=== PATIENT | female | born 1940 | race Caucasian/White ===

== ENCOUNTER 2019-11-10 14:54 | Outpatient (CLI) | payer MEDICARE, SELFPAY ==
--- NOTE | 2019-11-10 15:03 | MM_ITS ---
WS: [id number] BILATERAL DIGITAL DIAGNOSTIC MAMMOGRAM MAMMOGRAPHY WITH CAD CLINICAL INFORMATION: HX OF BREAST CA COMPARISON: September 15, 2018 TECHNIQUE: Bilateral CC, MLO, and ML views. FINDINGS: The breasts are composed of heterogeneous fibroglandular density, which can limit the detection of sm all underlying mass lesions. Lucent centered and vascular calcifications. Postoperative changes right breast with lumpectomy and parenchymal scarring. Treatment-related changes right breast. Postoperati ve changes upper outer left breast with parenchymal scarring. This is unchanged in appearance. No suspicious focal mass, asymmetry, calcifications, or architectural distortion. No evidence of jace gnancy. MM/[place] [id number] IMPRESSION: BI-RADS: 2-Benign FOLLOW UP: 1 Year Follow-up Recommend return to annual diagnostic mammography.
== END 2019-11-10 14:55 | disposition home or self-care (01) ==
LOC: RADSHAW 15:00
PROVIDERS: PCP Nurse Practitioner Family; Visit Provider Nurse Practitioner Family
DX: Z12.31 Encounter for screening mammogram for malignant neoplasm of breast (principal); Z85.3 Personal history of malignant neoplasm of breast
CPT/HCPCS: 77066

== ENCOUNTER 2020-04-20 13:58 | Emergency (ER) | payer MEDICARE, SELFPAY ==
[2020-04-20 14:29] VITALS: BP 204/77; PULSE 71; RESP 16; TEMP 36.9; O2SAT 100; BMI 18.2
--- NOTE | 2020-04-20 15:01 | CTR_ITS ---
PROCEDURE INFORMATION: Exam: CT Abdomen And Pelvis With Contrast Exam date and time: 04/20/2020 4:00 PM Age: 79 years old Clinical indication: Abdominal pain; Localized; Lower; Prior surgery; Surgery date: 6+ months; Surgery type: Gb, appy; Patient HX: C/O constipation x 3 days w vaginal pain/burning x 5 wks; Additional info: Pelvic pressure, constipation, distension TECHNIQUE: Imaging protocol: Computed tomography of the abdomen and pelvis with intravenous contrast. Radiation optimization: All CT scans at this facility use at least one of these dose optimization techniques: automated exposure control; mA and/or kV adjustment per patient size (includes targeted exams where dose is matched to clinical indication); or iterative reconstruction. Contrast material: OMNI 300; Contrast volume: 75 ml; Contrast route: INTRAVENOUS (IV); COMPARISON: CT Abdomen/Pelvis [facility] [id number] 03/08/2015 12:54 PM RADIATION DOSE METRICS: Total DLP (mGy-cm): 228.82 FINDINGS: Liver: Normal. No mass. Gallbladder and bile ducts: The gallbladder is been removed. Mild common bile duct dilatation is again noted measuring up to 12 mm in diameter, but tapers at the ampulla and is likely normal for this patient post cholecystectomy. No stenosis or ductal stone is seen. Pancreas: Normal. No ductal dilation. Spleen: Multiple splenic capsular calcifications are again noted. No splenomegaly. Adrenal glands: Normal. No mass. Kidneys and ureters: Normal. No hydronephrosis. Stomach and bowel: Wall thickening is observed in the 1st portion of duodenum. No intestinal obstruction. A large amount of stool is present in the colon. Diverticulosis coli is seen, without evidence of diverticulitis. Appendix: The appendix is absent. Intraperitoneal space: Unremarkable. No free air. No significant fluid collection. Vasculature: Unremarkable. No abdominal aortic aneurysm. Lymph nodes: Unremarkable. No enlarged lymph nodes. Urinary bladder: Unremarkable as visualized. Reproductive: Unremarkable as visualized. Bones/joints: Lumbar spine spondylosis is noted. No acute fracture. Soft tissues: Unremarkable. CT/CT abdomen pelvis w con* [id number] IMPRESSION: 1. Mild duodenitis. Correlate clinically for possible PUD. 2. Diverticulosis coli. No evidence of diverticulitis. 3. Constipation. Radiation Dose CTDIVOL = (mGy): DLP = 228.82 (mGy-cm)
[2020-04-20 15:10] VITALS: BP 193/74; PULSE 70; RESP 18; O2SAT 99
[2020-04-20 15:38] LABS: Basophils % 0.4 %; Eosinophils # 0.1 10^3/uL (0.0-0.8); Eosinophils % 0.6 %; Hematocrit 40.3 % (37.0-47.0); Hemoglobin 12.9 g/dL (11.5-15.3); Lymphocytes # 1.7 10^3/uL (0.8-4.8); Lymphocytes % 17.3 %; Mean Corpuscular Hemoglobin 27.8 pg (28.0-34.0); Mean Corpuscular Volume 86.9 fL (81-99); Mean Platelet Volume 9.8 fL (7.4-10.4); Monocytes # 0.7 10^3/uL (0.2-0.9); Monocytes % 7.7 %; Neutrophils # 7.03 10^3/uL (1.8-7.7); Neutrophils % 73.5 %; Nucleated Red Blood Cells % 0 %; Platelet Count 376 10^3/cmm (130-400); Red Blood Count 4.64 10^6/uL (4.1-5.3); White Blood Count 9.6 10^3/uL (4.0-10.0)
[2020-04-20 15:39] LABS: Add Urine Microscopic? NO
--- NOTE | 2020-04-20 15:40 | W.ED.FEMALGU ---
HPI - Female Genitourinary General: Chief complaint: Urogenital-Female Stated complaint: vaginal pain, nausea, dysuria Time Seen by Provider: 04/20/20 14:39 Source: patient and family () Mode of arrival: ambulatory Limitations: no limitations History of Present Illness: HPI Narrative: Patient is an 79-year-old female who presents to the emergency department with several urogenital complaints. She states that about 6 weeks ago she was diagnosed with a UTI after she had dysuria. She was placed on Macrobid and when the symptoms persisted she was treated for candidiasis. Symptoms have continued to persist and now she is also constipated. She had her last bowel movement 3 days ago. She has a past medical history of breast cancer and has had a bilateral oophorectomy. She denies any fever, nausea or vomiting. She said that about a week ago she noticed a lot of pressure in her pelvis and said he felt like her uterus was trying to come out. She has no prior history of the pelvic prolapse. MD elicited complaint: dysuria, UTI and pelvic pain Onset (ago): week(s) (6) Location of symptoms: vaginal and pelvis Severity: moderate Female Urogenital Radiation: Non-Radiating Quality of pain: dull Consistency: constant and progressively worsening Vaginal discharge: none Vaginal bleeding: none Urinary symptoms: Dysuria Exacerbating factors: none Relieving factors: none Associated symptoms: Reports abdominal pain; Deny short of breath, fevers/chills, headache(s), nausea, rash, seizures, syncope, vaginal discharge or weakness Patient : No Possible : postmenopausal Review of Systems General: Reports: 10 or more systems reviewed and unremarkable except in HPI and below Const: Denies: fever(s), chills or body aches Eyes: Denies: change in vision or blurry vision ENMT: Denies: throat pain, enlarged tonsils, odynophagia, hoarseness, mouth pain or swelling of lips/tongue Card: Denies: syncope Resp: Denies: dyspnea, productive cough or non-productive cough GI: Reports: abdominal pain; Denies: nausea : Denies: vaginal discharge Musc: Denies: neck pain, back pain or extremity swelling Skin/Breast: Denies: rash, pruritus or erythema Neuro: Denies: headache(s) Endo: Denies: polyuria, polydipsia or tired all the time PFSH ED PFSH: Social History (Reviewed 04/20/20 @ 15:47 by Guillermo Garland MD, [facility]) Smoking and tobacco status: never smoked Alcohol intake: never Substance/Drug Use: never Physical Exam Const: COMMON NORMALS: no acute distress, average body habitus, patient oriented x3, no limitations, healthy appearing, alert and well nourished Neck/C-Spine: COMMON NORMALS: no meningeal signs and no JVD Resp: COMMON NORMALS: normal respiratory effort, No retractions, No use of accessory muscles, clear to auscultation bilaterally and percussion normal AUSCULTATION: clear to auscultation bilaterally PERCUSSION: percussion normal Cardio: COMMON NORMALS: no JVD, regular rate, regular rhythm, S1 normal heart sound present, S2 normal heart sound present, No gallops present (Cardio), No clicks present (Cardio), No murmurs present (Cardio), No rub (Cardio) and Peripheral pulses 2+ throughout RATE: regular rate RHYTHM: regular rhythm HEART SOUNDS: S1 normal heart sound present and S2 normal heart sound present PERIPHERAL PULSES: Peripheral pulses 2+ throughout GI: COMMON NORMALS: Normal to inspection, nondistended, normoactive bowel sounds present, Soft to palpation, non-tender, No hepatosplenomegaly present, no masses and no bruits PALPATION: Yes Soft to palpation and Yes No hepatosplenomegaly present : SPECULUM EXAM - VAGINA: Yes tenderness SPECULUM EXAM - CERVIX: Yes Patulous cervix present and No Cervical bleeding BIMANUAL EXAM - ADNEXA, OTHER: Yes cul-de-sac tenderness, Yes cul-de-sac nodularity (multiple mobile roundish masses, about 1 cm in the right) and Yes cystocele RECTO-VAGINAL: cul-de-sac tenderness and cul-de-sac nodularity (multiple mobile roundish masses, about 1 cm in the right) Extremity: COMMON NORMALS: normal to inspection, full ROM, capillary refill normal, no calf tenderness and no pedal edema Neuro: COMMON NORMALS: patient oriented x3 SENSORIUM/ORIENTATION: Yes alert MENINGEAL SIGNS: Yes no meningeal signs Skin: COMMON NORMALS: no rashes or lesions noted, no wounds, turgor normal, no jaundice, no petechiae and no mottling GENERAL SKIN EXAM: no rashes or lesions noted and turgor normal Course Reevaluation(s): Reevaluation #1: Discussed her lab and imaging findings with her as well as my examination findings. Symptoms are consistent with a cystocele. She is also constipated but no signs of intestinal obstruction. She already has an appointment with her glass breaker and advised that she keeps it so that they can come up with a plan for management of the cystocele. Because she is in significant pain we will discharge her home with a prescription for tramadol. She is also given a prescription for lactulose for the constipation. For the duodenitis she will be given a prescription for a PPI. She voiced understanding and is in agreement with the plan. Time: 17:57 Vital Signs: Vital signs: Vital Signs Temperature 97.6 F 04/20/20 18:30 Pulse Rate 83 04/20/20 18:30 Respiratory Rate 16 04/20/20 18:30 Blood Pressure 170/80 04/20/20 18:30 Pulse Oximetry 95 04/20/20 18:30 MDM - Female MDM Narrative: Medical decision making narrative: Patient who presents to the emergency department with pelvic pressure and pain that has been going on for about 6 weeks. Evaluation in the emergency department is consistent with constipation and a cystocele. She also has some nodularity/lymph nodes on her posterior pelvic wall/cul-de-sac. She has an appointment with her glass breaker and she is advised to keep the appointment. An incidental finding on CT scan showed she had duodenitis. She is discharged home on a PPI, pain medication for the pelvic pain, and lactulose for constipation. She is to follow-up with the glass breaker and her primary care provider. Medical Records: Attestation: I reviewed the patient's medical records. Lab Data: Attestation: I reviewed the patient's lab results. Labs: Lab Results 04/20/20 04/20/20 04/20/20 Range/Units 15:13 15:25 15:25 WBC 9.6 (4.0-10.0) 10^3/ uL RBC 4.64 (4.1-5.3) 10^6/u L Hgb 12.9 (11.5-15.3) g/dL Hct 40.3 (37.0-47.0) % MCV 86.9 (81-99) fL MCH 27.8 L (28.0-34.0) pg MCHC 32.0 (30.0-36.0) g/dL RDW 13.0 (12.1-15.1) % Plt Count 376 (130-400) 10^3/c mm MPV 9.8 (7.4-10.4) fL Neut % (Auto) 73.5 % Lymph % (Auto) 17.3 % [place] % (Auto) 7.7 % Eos % (Auto) 0.6 % Baso % (Auto) 0.4 % Neut # (Auto) 7.03 (1.8-7.7) 10^3/u L Lymph # (Auto) 1.7 (0.8-4.8) 10^3/u L Kingman # (Auto) 0.7 (0.2-0.9) 10^3/u L Eos # (Auto) 0.1 (0.0-0.8) 10^3/u L Baso # (Auto) 0.0 (0.0-0.1) 10^3/u L Nucleated RBC % (a uto) 0 % Nucleated RBCs # 0.0 /100WBC Sodium 137 (136-145) mmol/L Potassium 4.3 (3.5-5.1) mmol/L Chloride 99 (98-107) mmol/L Carbon Dioxide 27 (22-29) mmol/L Anion Gap 15.3 (5-19) BUN 10 (8-23) mg/dL Creatinine 0.5 (0.5-0.9) mg/dL GFR Calculation Not Reportable Glucose 133 H (65-115) mg/dL Calculated Osmolal ity 285 (285-295) mOsm/k g Calcium 10.0 (8.5-10.5) mg/dL Total Bilirubin 0.3 (0.15-1.2) mg/dL AST 19 (0-32) U/L ALT 8 (0-33) U/L Alkaline Phosphata se 79 (35-105) IU/L C-Reactive Protein 0.9 (0.0-4.9) mg/L Total Protein 7.7 (6.6-8.7) g/dL Albumin 4.6 (3.5-5.2) g/dL Globulin 3.1 (1.3-4.6) g/dL Lipase 35 (13-60) U/L Urine Color Straw (Yellow) Urine Appearance Clear (CLEAR) Urine pH 7 (5-7) Ur Specific Gravit y 1.005 (1.005-1.030) Urine Protein Neg (Negative) Urine Glucose (UA) Norm (Normal) Urine Ketones Negative (Negative) Urine Blood Neg (Negative) Urine Nitrate Negative (Negative) Urine Bilirubin Neg (Negative) Urine Urobilinogen Norm (Negative) mg/dL Ur Leukocyte Stefania ase Negative (Negative) Imaging Data: CT Abd/Pel: Radiologist's impression: [address] [address] [address] Scan Report Signed Patient: Marilynn Sams #: [id number] : 1940Acct#:[id number] Age/Sex: 79 / FADM Date: 04/20/20 Loc: ERRoom/Bed: Attending Dr: Ordering Provider/Ordering MD: Guillermo Garland MD, [facility] Date of Service: 04/20/20 Procedure(s): CT abdomen pelvis w con* [id number] Accession Number(s): [id number] Report Number: [id number] PROCEDURE INFORMATION: Exam: CT Abdomen And Pelvis With Contrast Exam date and time: 04/20/2020 4:00 PM Age: 79 years old Clinical indication: Abdominal pain; Localized; Lower; Prior surgery; Surgery date: 6+ months; Surgery type: Gb, appy; Patient HX: C/O constipation x 3 days w vaginal pain/burning x 5 wks; Additional info: Pelvic pressure, constipation, distension TECHNIQUE: Imaging protocol: Computed tomography of the abdomen and pelvis with intravenous contrast. Radiation optimization: All CT scans at this facility use at least one of these dose optimization techniques: automated exposure control; mA and/or kV adjustment per patient size (includes targeted exams where dose is matched to clinical indication); or iterative reconstruction. Contrast material: OMNI 300; Contrast volume: 75 ml; Contrast route: INTRAVENOUS (IV); COMPARISON: CT Abdomen/Pelvis [facility] [id number] 03/08/2015 12:54 PM RADIATION DOSE METRICS: Total DLP (mGy-cm): 228.82 FINDINGS: Liver: Normal. No mass. Gallbladder and bile ducts: The gallbladder is been removed. Mild common bile duct dilatation is again noted measuring up to 12 mm in diameter, but tapers at the ampulla and is likely normal for this patient post cholecystectomy. No stenosis or ductal stone is seen. Pancreas: Normal. No ductal dilation. Spleen: Multiple splenic capsular calcifications are again noted. No splenomegaly. Adrenal glands: Normal. No mass. Kidneys and ureters: Normal. No hydronephrosis. Stomach and bowel: Wall thickening is observed in the 1st portion of duodenum. No intestinal obstruction. A large amount of stool is present in the colon. Diverticulosis coli is seen, without evidence of diverticulitis. Appendix: The appendix is absent. Intraperitoneal space: Unremarkable. No free air. No significant fluid collection. Vasculature: Unremarkable. No abdominal aortic aneurysm. Lymph nodes: Unremarkable. No enlarged lymph nodes. Urinary bladder: Unremarkable as visualized. Reproductive: Unremarkable as visualized. Bones/joints: Lumbar spine spondylosis is noted. No acute fracture. Soft tissues: Unremarkable. CT/CT abdomen pelvis w con* [id number] IMPRESSION: 1. Mild duodenitis. Correlate clinically for possible PUD. 2. Diverticulosis coli. No evidence of diverticulitis. 3. Constipation. Radiation Dose CTDIVOL = (mGy): DLP = 228.82 (mGy-cm) Dictated By:Fernando Gordon MD Signed By:Fernando Gordonigned Date/Time:04/20/201702 DD/ 01 Discharge Plan Discharge Patient Disposition: Home Clinical Impression: Prolapse of female pelvic organs, Constipation, Duodenitis Condition: Stable Prescriptions: New tramadol 50 mg tablet 50 mg PO Q8H PRN (Reason: pain) Qty: 20 RF: 0 lactulose 10 gram/15 mL solution 20 g PO DAILY PRN (Reason: constipation) Qty: 473 RF: 0 omeprazole 40 mg capsule,delayed release(DR/EC) 40 mg PO DAILY 28 Days Qty: 30 RF: 0 Continued multivitamin Tablet 1 tab PO DAILY RF: 0 pravastatin 40 mg tablet 40 mg PO DAILY RF: 0 Monistat 7 2 % Cream 1 appful VAGINAL PRN RF: 0 Tylenol Extra Strength 500 mg Tablet 1,000 mg PO PRN RF: 0 lisinopril 5 mg tablet 5 mg PO BID RF: 0 Osteo Bi-Flex 250-200 mg Tablet 1 tab PO DAILY RF: 0 CoQ-10 1 cap PO DAILY RF: 0 Discharge Orders: Discharge Order (Routine); Ordered 04/20/20 Ordered By: Guillermo Garland Referrals: Abdiel Patricio MD [Physician] - (As scheduled) Kalpana Ahn NP [Primary Care Provider] - 1-3 days Discharge Diet: Usual diet Discharge Activity: Increase activity as tolerated Patient Instructions: Constipation (ED), Cystocele (ED) Activity Restrictions/Additional Instructions: Return for any new or worsening symptoms. Follow-up with your primary care provider within [address] Patricio as scheduled. Take the pain medication as needed for pain. Use the lactulose for constipation. Coding Level of Care Code ED Automatic Door Mechanic for Chg Fwd Exam Comprehensive
[2020-04-20 15:44] LABS: Bilirubin Urine Neg (Negative); Blood Urine Neg (Negative); Glucose Urine UA Norm (Normal); Ketones Urine Negative (Negative); Leukocyte Esterase Urine Negative (Negative); Nitrate Urine Negative (Negative); Protein Urine Neg (Negative); Specific Gravity, Urine 1.005 (1.005-1.030); Urine Appearance Clear (CLEAR); Urine Color Straw (Yellow); Urobilinogen Urine Norm (Negative); pH Urine 7 (5-7)
[2020-04-20 15:55] LABS: Alanine Aminotransferase 8 U/L (0-33); Albumin Level 4.6 g/dL (3.5-5.2); Alkaline Phosphatase 79 IU/L (35-105); Anion Gap 15.3 (5-19); Aspartate Amino Transferase 19 U/L (0-32); Blood Urea Nitrogen 10 mg/dL (8-23); C Reactive Protein 0.9 mg/L (0.0-4.9); Carbon Dioxide 27 mmol/L (22-29); Chloride 99 mmol/L (98-107); Globulin 3.1 g/dL (1.3-4.6); Glucose 133 mg/dL (65-115); Lipase 35 U/L (13-60); Osmolality Calculated 285 mOsm/kg (285-295); Potassium 4.3 mmol/L (3.5-5.1); Sodium 137 mmol/L (136-145); Total Bilirubin 0.3 mg/dL (0.15-1.2); Total Protein 7.7 g/dL (6.6-8.7)
[2020-04-20] MEDS: iohexol 300 mg/mL 100 mL Btl IV (16:11)
[2020-04-20 16:20] VITALS: BP 182/70; PULSE 80; RESP 18; O2SAT 100
[2020-04-20 18:21] VITALS: RESP 18
[2020-04-20] MEDS: morphine 4 mg/mL SDV 1 mL 2 MG IVP (18:21)
[2020-04-20] MEDS: ondansetron 2 mg/ML SDV 2 mL 4 MG IVP (18:22)
[2020-04-20 18:30] VITALS: BP 170/80; PULSE 83; RESP 16; TEMP 36.4; O2SAT 95
== END 2020-04-20 18:32 | disposition home or self-care (01) ==
PROVIDERS: Emergency Provider Family Medicine; PCP Nurse Practitioner Family
DX: N81.89 Other female genital prolapse (principal); K59.00 Constipation, unspecified; K29.80 Duodenitis without bleeding
CPT/HCPCS: 12345; 74177; 80053; 81003; 83690; 85025; 86140; 96374; 96375; 99283; J2270; J2405; Q9967

== ENCOUNTER 2020-05-01 14:54 | Outpatient (CLI) | payer MEDICARE, SELFPAY ==
--- NOTE | 2020-05-01 15:09 | US_ITS ---
WS: [id number] RENAL ULTRASOUND HISTORY: GRANULAR CASTS PRESENT IN URINE COMPARISON: CT 04/20/2020 TECHNIQUE: 2-D and color Doppler imaging of the kidney submitted. Right kidney: 9.5 cm x 4.9 cm x 4.4 cm. Increased echogenicity with a minimally prominent renal pelvis. No hydronephrosis. Left kidney: 10.9 cm x 3.8 cm x 4.6 cm. Normal size kidney with increased echogenicity. Mildly prominent renal pelvis. No obstruction. Aorta: Mild atherosclerosis. Urinary Bladder: Minimally distended urinary bladder. US/US renal BI* [id number] IMPRESSION: 1. Increased echogenicity throughout both kidneys suggesting chronic medical r enal disease. No significant atrophy. 2. Prominent bilateral extrarenal pelves. No obstruction.
== END 2020-05-01 14:55 | disposition home or self-care (01) ==
PROVIDERS: PCP Nurse Practitioner Family; Visit Provider Nurse Practitioner Family
DX: R82.998 Other abnormal findings in urine (principal)
CPT/HCPCS: 76770

== ENCOUNTER → 2020-05-03 14:15 | Outpatient (BNVA) | payer MEDICARE, SELFPAY | PROVIDERS: PCP Nurse Practitioner Family; Visit Provider Obstetrics & Gynecology | DX: R39.15 Urgency of urination (principal) | CPT/HCPCS: 87086 ==

== ENCOUNTER → 2020-06-13 13:15 | Outpatient (BNVA) | payer MEDICARE, SELFPAY | PROVIDERS: PCP Nurse Practitioner Family; Visit Provider Obstetrics & Gynecology | DX: N81.2 Incomplete uterovaginal prolapse (principal) | CPT/HCPCS: 87635 ==

== ENCOUNTER → 2020-06-19 05:46 | Day surgery (SDC) | payer MEDICARE, SELFPAY ==
[2020-06-13 12:22] VITALS: BMI 17.6
--- NOTE | 2020-06-13 12:52 | P.ANESASSM_ITS ---
Pre-Anesthetic Assessment Pre-Anesthetic Assessment: Height/Weight: Height 1.6 m Weight 45.359 kg Preop Diagnosis: incomplete uterovaginal prolapse Proposed Procedure: Operation Date: 06/19/20 07:00 Proposed Procedures p Total Laparoscopic Hysterectomy 55452 36858 80213 21764 N81.2(Not Applicable) - MD edith Oscar Laparoscopic Uterosacral Ligament Suspen(Not Applicable) - MD edith Oscar possible Anterior Repair Anterior Colporrhaphy(Not Applicable) - MD edith Oscar Cystoscopy(Not Applicable) - Abdiel Patricio MD Familial anesthetic complications: None Social: Social History: No alcohol and No tobacco Exam: Pre-Anes Outpt Exam: alert, oriented x 3, clear to auscultation bilaterally and regular rate & rhythm Airway: MP: 2 Dentition: Full Pulmonary: Pulmonary: None reported CV/HEM: CV/HEM: HTN GI: GI: GERD Metabolic: Metabolic: Hyperlipidemia Comments: Pre-DM Anesthetic Plan: ASA status: 2 Anesthesia: General Risk of > 500 ml blood loss (7ml/kg in children): No PFSH Anesthesia PFSH: Medical History Borderline diabetes mellitus Diverticulosis GERD (gastroesophageal reflux disease) Glaucoma Had eye surgery 2018 to treat glaucoma Hyperlipidemia Hypertension Malignant neoplasm of upper-outer quadrant of right female breast (~11/2014) Stage IA, infiltrating ductal carcinoma, grade 2/3, pT1c, N0, M0, ER/TX positive, HER-2/moncho negative. Postmenopausal osteoporosis Scleroderma Surgical History S/P appendectomy (~1968) S/P breast biopsy, right (~1995) Performed in [place], [place]. Benign per patient. S/P BSO (bilateral salpingo-oophorectomy) (06/19/15) Laparoscopic. Performed by Dr. Patricio at [facility] [place] [place] in [place], [place]. S/P cholecystectomy (~1968) Performed in [place], [place]. S/P eye surgery (~2018) Cataracts and glaucoma. Performed by Dr. Jenkins at [facility]. S/P lumpectomy, left breast (~10/2001) Performed at [facility] [place] [place]. Benign per patient. S/P lumpectomy, right breast (11/30/14) With sentinel node biopsy. Infiltrating ductal carcinoma of the upper outer quadrant of the right breast. Performed by Dr. Iglesias at [facility] [place] [place] in [place], [place]. Family History Mother Heart disease Grandfather Diabetes Paternal Grandmother Breast cancer Maternal. MGM had a breast removed, unsure if it was breast cancer as she was a young child. Social History (Updated 06/13/20 @ 10:02 by Abdiel Patricio MD) Smoking and tobacco status: never smoked Alcohol intake: never Substance/Drug Use: never Data Anesthesia Cardiac Studies: No Data to Display
[2020-06-13 13:11] LABS: Basophils % 0.3 %; Eosinophils % 0.2 %; Hematocrit 41.8 % (37.0-47.0); Hemoglobin 13.1 g/dL (11.5-15.3); Lymphocytes # 2.2 10^3/uL (0.8-4.8); Lymphocytes % 19.4 %; Mean Corpuscular HGB Conc 31.3 g/dL (30.0-36.0); Mean Corpuscular Hemoglobin 28.1 pg (28.0-34.0); Mean Corpuscular Volume 89.7 fL (81-99); Mean Platelet Volume 9.9 fL (7.4-10.4); Monocytes # 0.8 10^3/uL (0.2-0.9); Monocytes % 7.4 %; Nucleated Red Blood Cells % 0 %; Platelet Count 387 10^3/cmm (130-400); Red Blood Count 4.66 10^6/uL (4.1-5.3); Red Cell Distribution Width 13.6 % (12.1-15.1); White Blood Count 11.1 10^3/uL (4.0-10.0)
[2020-06-13 15:05] LABS: Anion Gap 13.9 (5-19); Blood Urea Nitrogen 7 mg/dL (8-23); Calcium 10.1 mg/dL (8.5-10.5); Carbon Dioxide 30 mmol/L (22-29); Chloride 98 mmol/L (98-107); Glucose 109 mg/dL (65-115); Osmolality Calculated 285 mOsm/kg (285-295); Potassium 3.9 mmol/L (3.5-5.1); Sodium 138 mmol/L (136-145)
[2020-06-19 06:03] VITALS: BP 200/88; PULSE 77; RESP 16; TEMP 36.8; O2SAT 97
[2020-06-19] MEDS: sodium chloride 0.9% 1,000 ML 30 ML IV (06:30)
[2020-06-19] MEDS: ketorolac 30 mg/mL INJ IVP (06:45)
[2020-06-19] MEDS: gabapentin 300 mg Capsule PO (06:45)
[2020-06-19] MEDS: phenazopyridine 100 mg Tablet 200 MG PO (06:50)
--- NOTE | 2020-06-19 06:53 | P.HPUD_ITS ---
Surgery/Procedure H&P Update DATE OF PROCEDURE: June 19, 2020 DATE H&P PERFORMED: 06/13/20 H&P UPDATE INFORMATION: I have reviewed H&P completed within last 30 days, I have examined patient prior to procedure, No changes to prior documentation and H&P is in [facility] [place] EMR on date indicated PREOP DIAGNOSIS: incomplete uterovaginal prolapse PLANNED PROCEDURE: Operation Date: 06/19/20 07:00 Proposed Procedures p Total Laparoscopic Hysterectomy 63132 54367 25230 77226 N81.2(Not Applicable) - Abdiel Patricio MD s Laparoscopic Uterosacral Ligament Suspen(Not Applicable) - Abdiel Patricio MD s possible Anterior Repair Anterior Colporrhaphy(Not Applicable) - Abdiel Patricio MD s Cystoscopy(Not Applicable) - Abdiel Patricio MD
--- NOTE | 2020-06-19 07:09 | P.ANESUD_ITS ---
Pre-Anesthetic Update Pre-Anesthetic Assessment: Date of Surgery/Procedure: 06/19/20 Preop Paula gnosis: incomplete uterovaginal prolapse Proposed Procedure: Operation Date: 06/19/20 07:00 Proposed Procedures p Total Laparoscopic Hysterectomy 25066 33705 20757 59081 N81.2(Not Applicable) - Abdiel Patricio MD s Laparoscopic Uterosacral Ligament Suspen(Not Applicable) - Abdiel Patricio MD s possible Anterior Repair Anterior Colporrhaphy(Not Applicable) - Abdiel Patricio MD s Cystoscopy(Not Applicable) - Abdiel Patricio MD Any changes to Pre-Anesthetic Assessment?: No Last Intake: Intake Last Liquid Date 06/18/20 Last Liquid Time 21:00 Last Solid Date 06/18/20 Last Solid Time 18:30 Last Intake: 00:00 Vitals: Temperature 98.2 F 06/19/20 06:03 Pulse Rate 77 06/19/20 06:03 Pulse Rhythm 06/19/20 06:30 Pulse Strength 3+ Normal 06/19/20 06:30 Respiratory Rate 16 06/19/20 06:03 Blood Pressure 200/88 06/19/20 06:03 Blood Pressure Ankita n 125 06/19/20 06:03 Pulse Oximetry 97 06/19/20 06:03 Oxygen Delivery Me thod 06/19/20 06:30 Exam: Pre-Anes Outpt Exam: alert, oriented x 3, clear to auscultation bilaterally and regular rate & rhythm Cardiac Studies: No Data to Display
--- NOTE | 2020-06-19 08:04 | PC.NURSE ---
Patient walked out with spouse. Surgery had been cancelled.
[2020-07-05 11:18] VITALS: BMI 17.6
--- NOTE | 2020-07-05 11:24 | ECG_ITS ---
[facility] Test Date: 2020-07-05 Pat Name: Marilynn Sams Department: Room: Gender: Female Traffic Recorder: : 1940 Requested By: Terry Silvestre Order Number: [id number] Samaria MD: Tod Logan M.D. Measurements Intervals [place] Rate: 73 P: 65 CT: 168 QRS: 5 QRSD: 78 T: 90 QT: 369 QTc: 407 Interpretive Statements SINUS RHYTHM NONSPECIFIC T-WAVE ABNORMALITY Compared to ECG 05/25/2017 17:15:44 T-wave abnormality now present Electronically Signed On 07-05-2020 16:05:50 DEV TECHNICAL MGR by Tod Logan M.D. [id number]
--- NOTE | 2020-07-05 17:01 | P.ANESASSM_ITS ---
Pre-Anesthetic Assessment Pre-Anesthetic Assessment: Height/Weight: Height 1.6 m Weight 45.359 kg Temp Pulse Resp BP Pulse Ox 98.2 F 77 16 200/88 97 06/19/20 06:03 06/19/20 06:03 06/19/20 06:03 06/19/20 06:03 06/19/20 06:03 Preop Diagnosis: incomplete uterovaginal prolapse Proposed Procedure: Operation Date: 06/19/20 07:00 Proposed Procedures p Total Laparoscopic Hysterectomy [id number] N81.2(Not Applicable) - MD edith Oscar Laparoscopic Uterosacral Ligament Suspen(Not Applicable) - MD edith Oscar possible Anterior Repair Anterior Colporrhaphy(Not Applicable) - MD edith Oscar Cystoscopy(Not Applicable) - Abdiel Patricio MD Was Beta Adri taken within 24 hours: N/A Last intake: Intake Last Liquid Date 06/18/20 Last Liquid Time 21:00 Last Solid Date 06/18/20 Last Solid Time 18:30 Social: Social History: No alcohol and No tobacco Exam: Pre-Anes Outpt Exam: alert, oriented x 3, clear to auscultation bilaterally and regular rate & rhythm Airway: Submandibular: WNL Cervical ROM: WNL MP: 2 Dentition: Full CV/HEM: CV/HEM: HTN GI: GI: GERD Metabolic: Metabolic: DM Anesthetic Plan: ASA status: 3 Anesthesia: General Risk of > 500 ml blood loss (7ml/kg in children): No PFSH Anesthesia PFSH: Medical History Borderline diabetes mellitus Diverticulosis GERD (gastroesophageal reflux disease) Glaucoma Had eye surgery 2019 to treat glaucoma Hyperlipidemia Hypertension Malignant neoplasm of upper-outer quadrant of right female breast (~11/2014) Stage IA, infiltrating ductal carcinoma, grade 2/3, pT1c, N0, M0, ER/ID positive, HER-2/moncho negative. Postmenopausal osteoporosis Scleroderma Surgical History S/P appendectomy (~1968) S/P breast biopsy, right (~1995) Performed in [place], [place]. Benign per patient. S/P BSO (bilateral salpingo-oophorectomy) (06/19/15) Laparoscopic. Performed by Dr. Patricio at [facility] in [place], [place]. S/P cholecystectomy (~1968) Performed in [place], [place]. S/P eye surgery (~2018) Cataracts and glaucoma. Performed by Dr. Jenkins at [facility]. S/P lumpectomy, left breast (~10/2001) Performed at [facility]. Benign per patient. S/P lumpectomy, right breast (11/30/14) With sentinel node biopsy. Infiltrating ductal carcinoma of the upper outer quadrant of the right breast. Performed by Dr. Iglesias at [facility] in [place], [place]. Family History Mother Heart disease Grandfather Diabetes Paternal Grandmother Breast cancer Maternal. MGM had a breast removed, unsure if it was breast cancer as she was a young child. Social History (Updated 07/05/20 @ 13:46 by Abdiel Patricio MD) Smoking and tobacco status: never smoked Alcohol intake: never Substance/Drug Use: never Data Anesthesia CBC & Chem 7: 06/13/20 12:50 06/13/20 12:50 Cardiac Studies: No Data to Display
== END ==
PROVIDERS: PCP Nurse Practitioner Family; Visit Provider Obstetrics & Gynecology
DX: N81.2 Incomplete uterovaginal prolapse (principal); Z53.9 Procedure and treatment not carried out, unspecified reason; R94.31 Abnormal electrocardiogram [ECG] [EKG]; R39.15 Urgency of urination
CPT/HCPCS: 12345; 36415; 80048; 85025; 87086; 93005; 96374; J0131; J1100; J1200; J1885; J2405; J2710; J3010; J3490; J7030

== ENCOUNTER → 2020-07-04 09:22 | Outpatient (BNVA) | payer MEDICARE, SELFPAY | PROVIDERS: PCP Nurse Practitioner Family; Visit Provider Obstetrics & Gynecology | DX: N81.2 Incomplete uterovaginal prolapse (principal) | CPT/HCPCS: 87635 ==

== ENCOUNTER 2020-07-10 10:23 | Observation (INO) | payer MEDICARE, SELFPAY ==
[2020-07-10] VITALS (20 sets, daily range): BP systolic 150–207; BP diastolic 60–88; PULSE 62–90; RESP 16–22; TEMP 36.3–37.6; O2SAT 94–100; BMI 15.9
[2020-07-10] MEDS: sodium chloride 0.9% 1,000 ML 30 ML IV (06:26)
[2020-07-10] MEDS: phenazopyridine 100 mg Tablet 200 MG PO ×3 (06:26→20:44)
--- NOTE | 2020-07-10 06:39 | W.PM.OPSUD ---
Surgery/Procedure H&P Update DATE OF PROCEDURE: July 10, 2020 DATE H&P PERFORMED: 07/05/20 H&P UPDATE INFORMATION: I have reviewed H&P completed within last 30 days, I have examined patient prior to procedure, No changes to prior documentation and H&P is in [facility] EMR on date indicated PREOP DIAGNOSIS: incomplete uterovaginal prolapse PLANNED PROCEDURE: Operation Date: 07/10/20 07:00 Proposed Procedures p Total Laparoscopic Hysterectomy(Not Applicable) - Abdiel Patricio MD s Laparoscopic Uterosacral Ligament Suspen(Not Applicable) - MD edith Oscar Anterior Repair(Not Applicable) - MD edith Oscar Cystoscopy(Not Applicable) - Abdiel Patricio MD Related Problem List Diagnoses (1) Incomplete uterovaginal prolapse:
--- NOTE | 2020-07-10 06:44 | P.ANESUD_ITS ---
Pre-Anesthetic Update Pre-Anesthetic Assessment: Date of Surgery/Procedure: 07/10/20 Preop Paula gnosis: incomplete uterovaginal prolapse Proposed Procedure: Operation Date: 07/10/20 07:00 Proposed Procedures p Total Laparoscopic Hysterectomy(Not Applicable) - Abdiel Patricio MD s Laparoscopic Uterosacral Ligament Suspen(Not Applicable) - MD edith Oscar Anterior Repair(Not Applicable) - MD edith Oscar Cystoscopy(Not Applicable) - Abdiel Patricio MD Any changes to Pre-Anesthetic Assessment?: No Last Intake: NPO > 8 hrs Vitals: Temperature 98.6 F 07/10/20 06:15 Temperature Source Temporal Artery S can 07/10/20 06:15 Pulse Rate 90 07/10/20 06:15 Respiratory Rate 18 07/10/20 06:15 Blood Pressure 207/84 07/10/20 06:15 Blood Pressure Ankita n 125 07/10/20 06:15 Pulse Oximetry 99 07/10/20 06:15 Oxygen Delivery Me thod 07/10/20 06:15 Exam: Pre-Anes Outpt Exam: alert, oriented x 3, clear to auscultation bilaterally and regular rate & rhythm Cardiac Studies: No Data to Display
[2020-07-10] MEDS: midazolam 1 mg/mL INJ 2 mL 2 MG IVP (07:06)
[2020-07-10 07:28] LABS: Basophils % 0.2 %; Eosinophils # 0.1 10^3/uL (0.0-0.8); Eosinophils % 0.9 %; Hematocrit 41.3 % (37.0-47.0); Lymphocytes # 1.5 10^3/uL (0.8-4.8); Lymphocytes % 16.3 %; Mean Corpuscular HGB Conc 31.5 g/dL (30.0-36.0); Mean Corpuscular Hemoglobin 28.3 pg (28.0-34.0); Mean Corpuscular Volume 89.8 fL (81-99); Mean Platelet Volume 11.2 fL (7.4-10.4); Monocytes # 0.8 10^3/uL (0.2-0.9); Monocytes % 8.8 %; Neutrophils # 6.77 10^3/uL (1.8-7.7); Neutrophils % 73.5 %; Nucleated Red Blood Cells % 0 %; Platelet Count 260 10^3/cmm (130-400); Red Cell Distribution Width 13.4 % (12.1-15.1); White Blood Count 9.2 10^3/uL (4.0-10.0)
--- NOTE | 2020-07-10 08:11 | SUR.OPER ---
was called and given and update on procedure
[2020-07-10 08:16] LABS: Slide Review Slide Review Perform
[2020-07-10] MEDS: vasopressin 20 unit/mL INJ INJECTION (08:25)
--- NOTE | 2020-07-10 09:19 | SUR.OPER ---
phoned for update on procedure
--- NOTE | 2020-07-10 09:55 | PM.OP ---
Operative Report Date of procedure: July 10, 2020 Pre-op Diagnosis: incomplete uterovaginal prolapse Post-op Diagnosis: Incomplete uterovaginal prolapse Procedure Done: Laparoscopic assisted vaginal hysterectomy, Laparoscopic vaginal colpopexy (uterosacral ligaments for suspension with enterocele repair), Cystoscopy Specimens removed/disposition: Uterus and cervix Surgeon: Abdiel Patricio [employer] Teacher: None Anesthesia: General Estimated blood loss (mL): 30 Complications: None Findings: Second to third-degree uterine prolapse with second-degree cystocele. Narrow vagina present. Small uterus noted. Ovaries were surgically absent. Brief History: Patient is an 79-year-old female 3, para 3 who is postmenopausal. She had had her ovaries previously removed due to having breast cancer. She had presented to the office on 05/03/2020 as a referral due to something protruding from the vagina at times. She reports that it tends to come out with bowel movements. She was reporting pelvic discomfort associated with it as well. She denied stress urinary incontinence symptoms. On exam, she was found to have a second to third-degree uterine prolapse with a second-degree cystocele. She did have a very narrow vagina. Treatment options were discussed with her and she wished to proceed with a hysterectomy and vault suspension with possible anterior repair. Due to the narrowness of the vagina, it was felt that she would most likely require a total laparoscopic hysterectomy. Procedure: The patient was taken to the operating room where general anesthesia was obtained. She was prepped and draped in the usual sterile fashion in the dorsal supine position with legs in Dinehs style stirrups. Sequential compression boots were placed prior to starting the case. Kasper catheter was inserted and exam under anesthesia was performed. She was found to have a second to third-degree uterine prolapse with second-degree cystocele. Weighted speculum was placed in the vagina and the cervix was grasped with a single-tooth tenaculum. The uterus sounded to 6 cm. FS 30 Fonisee uterine manipulator was placed. The vagina was narrow enough that it was difficult to place the manipulator. The infraumbilical region was injected with 2% lidocaine with epinephrine. Skin incision was made with a knife in the lower edge of the navel and a size 10 trocar and sheath were inserted under direct visualization using an Optiview type technique. Trocar was removed and replaced with just the laparoscope confirming intra-abdominal placement. The anterior abdominal wall was inspected and noted to be free of adhesions. In the right and left lower quadrants, lateral to the inferior epigastric vessels, the skin was injected with 2% lidocaine with epinephrine. Skin incisions were made with the knife and a 5 mm trocar and sheath were inserted under direct visualization at each site. Approximately 2 cm above the pubic symphysis in the midline, the skin was injected with 2% lidocaine with epinephrine. Skin incision was made with a knife and a 5 mm trocar and sheath were inserted under direct visualization. The pelvis was thoroughly inspected. Both ovaries were noted to be surgically absent. Patient had filmy adhesions between the bladder and the lower uterine segment. These were easily taken down bluntly. She also had some filmy adhesions between the sigmoid and the left pelvic brim which were easily taken down. She was noted to have a very small uterus. Using the Voyant sealing device, the left round ligament was cauterized and cut and the dissection carried along the lateral aspect of the uterus to approximately the level of the internal os. The broad ligament was and dissection carried over the lower uterine segment. Using the Voyant sealing device, the right round ligament was cauterized and cut and the dissection carried along the lateral aspect of the uterus to approximate the level of the internal os. The broad ligament was and the dissection carried over the lower uterine segment to meet with the dissection from the contralateral side. The bladder was dissected away from the lower uterine segment. The uterine vessels were sealed at the level of the cervix and cut bilaterally. On inspection of the bladder flap, the bladder appeared to be between the edge of the cup and the cervix. I had difficulty identifying the edge of the bladder. As a result, I inspected vaginally and found that the cuff of the manipulator was not staying tight against the cervix, allowing the bladder to slip between the cup and the cervix. This was due to her very small uterus. However, due to the upper supports having been taken down, the uterus had distended to a full third-degree prolapse and decision was made to complete the hysterectomy vaginally, thus converting to a laparoscopic assisted vaginal hysterectomy. The uterine manipulator was removed. Using handheld retractors, the cervix was regrasped with a single-tooth tenaculums. The cervix was circumferentially injected with dilute Pitressin solution. A circumferential incision was made with a knife. Bladder was bluntly dissected off of the lower uterine segment anteriorly. Posterior cul-de-sac was sharply entered and the peritoneum tagged to the vaginal mucosa in the midline. Handheld retractor was then placed into the posterior cul-de-sac. Uterosacral ligaments were clamped, cut, and suture ligated with 0 Vicryl suture bilaterally. At this point it was noted that the anterior cul-de-sac had been entered. A long right angle retractor was placed into the anterior cul-de-sac to elevate the bladder away from the uterus. The remaining pedicle on each side was clamped, cut, and suture ligated with 0 Vicryl suture bilaterally and the uterus was completely removed. Due to the narrowness of the vagina and the difficulty of visualizing the area the uterosacral ligaments vaginal length, decision was made to go ahead and close the cuff vaginally with plan to proceed with a laparoscopic vaginal colpopexy. The vaginal mucosa was closed in a horizontal fashion using interrupted stitches of 0 Vicryl suture in a [id number] fashion. Elevation of the vaginal cuff appeared to eliminate the cystocele and it was felt at this time that an anterior repair would most likely not be needed. The abdomen was reinflated. Patient was noted to have a large enterocele. As a result, a modified Moschcowitz culdoplasty was performed laparoscopically. Using 2-0 silk suture, starting at the posterior vaginal cuff, the peritoneum was picked up in a pursestring fashion, with care taken to incorporate or kink the ureters in the process. Once placed, the stitch was tied, closing the enterocele. The cephalad most displacement of the vaginal vault was determined with EEA sizers used vaginally for manipulation. The location for attachment along the right uterosacral ligament was identified. Using 0 Ethibond suture, stitch was placed into the uterosacral ligament. Care was taken not to incorporate the ureters or bowel in the process. This was secured to the right side of the vaginal vault. The suture was then tied, securing the corner of the vagina to the uterosacral ligament. After identifying the great degree of displacement of the vaginal vault on the left side, 0 Ethibond suture was placed into the uterosacral ligament on the left side. Care was taken not to incorporate the ureters or bowel in the process. This was secured to the left side of the vaginal vault. The suture was then tied, securing the corner of the vagina to the uterosacral ligament. The vagina was then inspected and good support was noted to the anterior vaginal wall. As result anterior colporrhaphy was not required. Kasper catheter was removed and cystoscopy performed. No suture material was noted within the bladder. No bladder masses were noted. Both ureters were noted to be effluxing urine well. Bladder was drained and Kasper catheter reinserted. The abdomen was deflated and the sleeves were removed. The 5 mm sites were closed with single stitches of 4-0 Vicryl suture. The umbilical site was closed with a deep stitch of 4-0 Vicryl suture followed by subcuticular closure of the skin. Skin glue was applied to the trocar sites. Patient tolerated the procedures well. Sponge needle and instrument counts were correct. DRAINS: Kasper catheter POSTOPERATIVE STATUS: The patient was transferred to the recovery room in satisfactory condition.
--- NOTE | 2020-07-10 10:07 | SUR.PHASEI ---
1007- ORAL AIRWAY REMOVED, SIMPLE MASK IN PLACE AT 6LPM SAT 100%
[2020-07-10] MEDS: morphine 4 mg/mL SDV 1 mL IVP ×2 (11:01→12:11)
[2020-07-10] MEDS: TRAMadol 50 mg Tablet PO ×2 (11:02→16:30)
--- NOTE | 2020-07-10 11:52 | ANE.PACU2 ---
Inpatient post-anesthesia follow up: Airway intact: Yes Vital signs: Temperature 97.7 F Pulse Rate 68 Respiratory Rate 18 Blood Pressure 176/72 Pulse Oximetry 98 Oxygen Delivery Me thod Room Air Oxygen Flow Rate 6 Fraction of Inspir ed Oxygen Hydration adequate: Yes Nausea and vomiting: No Pain level: 3 Mental status: Baseline
[2020-07-10] MEDS: ibuprofen 600 mg Tablet PO ×3 (12:09→20:44)
[2020-07-10] MEDS: lisinopril 5 mg Tablet PO (18:09)
[2020-07-10] MEDS: docusate sodium 100 mg Capsule PO (18:09)
[2020-07-10] MEDS: labetalol 200 mg Tablet 50 MG PO (19:25)
[2020-07-11] MEDS: sodium chloride 0.9% 500 ML IV (03:30)
--- NOTE | 2020-07-11 03:56 | PC.NURSE ---
Walsh Catheter was removed at 2100 after patient ambulated well with this RN throughout OB unit. Patient had 300ml in catheter when removed. Patient has been asleep from 2129 - 319. This nurse assisted patient up to restroom to void as she is at 6 hours post walsh removal. Patient sat on toilet for 15 minutes and was not able to void. Normal Saline 500ml bolus given IV, will reassess after that is finished.
--- NOTE | 2020-07-11 04:37 | PC.NURSE ---
500ml IV bolus completed. Patient up to restroom. Annalise-bottle with luke warm water given, patient instructed how to use and to lean forward to try and stimulate void.
[2020-07-11 05:00] VITALS: BP 175/68; PULSE 79; RESP 16; TEMP 36.8; O2SAT 98
[2020-07-11 07:04] LABS: Hematocrit 37.7 % (37.0-47.0); Hemoglobin 12.1 g/dL (11.5-15.3); Mean Corpuscular HGB Conc 32.1 g/dL (30.0-36.0); Mean Corpuscular Hemoglobin 28.1 pg (28.0-34.0); Mean Corpuscular Volume 87.7 fL (81-99); Mean Platelet Volume 9.9 fL (7.4-10.4); Platelet Count 307 10^3/cmm (130-400); Red Cell Distribution Width 13.5 % (12.1-15.1); White Blood Count 13.3 10^3/uL (4.0-10.0)
--- NOTE | 2020-07-11 07:59 | P.DS_ITS ---
Discharge Providers Date of Admission: 07/10/20 10:23 Date of Discharge: July 11, 2020 Attending Provider at Admission: Abdiel Patricio MD Attending Provider at Discharge: Abdiel Patricio MD Primary Care Provider: Kalpana Ahn NP Diagnoses at Discharge Discharge Diagnosis (1) Incomplete uterovaginal prolapse: Status: Acute Reason for Visit Reason for Visit: hysterectomy, ligament suspension, colprrhaphy Hospital Course Hospital Course The patient was admitted for laparoscopic assisted vaginal hysterectomy with vault suspension and perineorrhaphy. She did well postoperatively. She was unable to void and a straight cath performed. She was still unable to void after 6 hours and the walsh catheter was replaced. She was discharged home with the walsh catheter. It will be removed at her 1 week post op appointment. Physical Exam Narrative: EXAM NARRATIVE: The patient is doing well this AM. She has not been able to void. She had a straight catheter early in the AM. Const: COMMON NORMALS: no acute distress, average body habitus, patient oriented x3, no limitations, healthy appearing, alert and well nourished GENERAL APPEARANCE: cooperative, comfortable, well kempt and well developed ORIENTATION/CONSCIOUSNESS: Yes awake Resp: COMMON NORMALS: normal respiratory effort and No retractions EFFORT & INSPECTION: Yes able to speak in complete sentences GI: COMMON NORMALS: Soft to palpation and non-tender PALPATION: Yes Soft to palpation Extremity: COMMON NORMALS: no clubbing, cyanosis or edema Neuro: COMMON NORMALS: patient oriented x3 SENSORIUM/ORIENTATION: Yes alert Psych: COMMON NORMALS: mental status grossly normal and cooperative APPEARANCE: Yes well kempt ATTITUDE: Yes calm Skin: COMMON NORMALS: no rashes or lesions noted GENERAL SKIN EXAM: no rashes or lesions noted Urinary Catheter Management^: Walsh: Cath Placed During This Visit: yes, but has since been removed by the nurse Reason for Continuing Indwelling Catheter: Perioperative Use in Selected Surgeries Urinary Catheter Date of Insertion: 07/10/20 Urinary Catheter Time of Insertion: 07:33 Date Urinary Catheter Removed: 07/10/20 Time Urinary Catheter Discontinued: 21:00 Discharge Data Data Completed and Pending: Pending at discharge Category Date Time Status ES surgery / GI i mages Routine Exams 07/10/20 06:42 Taken Pathology: Surgic al [PTH] Routine Pth 07/10/20 10:03 Received Labs from last 24 hours 07/11/20 07/10/20 07/10/20 06:51 06:35 06:00 WBC 13.3 H 9.2 RBC 4.30 4.60 Hgb 12.1 13.0 Hct 37.7 41.3 MCV 87.7 89.8 MCH 28.1 28.3 MCHC 32.1 31.5 RDW 13.5 13.4 Plt Count 307 260 MPV 9.9 11.2 H Neut % (Auto) 73.5 Lymph % (Auto) 16.3 [place] % (Auto) 8.8 Eos % (Auto) 0.9 Baso % (Auto) 0.2 Neut # (Auto) 6.77 Lymph # (Auto) 1.5 [place] # (Auto) 0.8 Eos # (Auto) 0.1 Baso # (Auto) 0.0 Nucleated RBC % (a uto) 0 Nucleated RBCs # 0.0 Blood Type O Positive Rho(D) Type Positive Antibody Screen Negative Vitals: Last Vital Signs Temp 97.7 F 07/10/20 20:15 Pulse 79 07/10/20 20:15 Resp 16 07/10/20 20:15 BP 171/75 07/10/20 20:15 Pulse Ox 98 07/10/20 20:15 Discharge Plan Discharge Patient Disposition: Home Condition: Stable Prescriptions: New tramadol 50 mg Tablet 50 mg PO Q4H PRN (Reason: Moderate To Severe Pain) Qty: 20 RF: 0 Continued Premarin 0.625 mg/gram cream 0.3125 mg vaginal .COMPLEX Qty: 30 RF: 0 cholecalciferol (vitamin D3) 25 mcg (1,000 unit) capsule 1,000 unit PO DAILY RF: 0 docusate sodium [Colace] 100 mg capsule 100 mg PO DAILY PRN (Reason: Constipation) RF: 0 coenzyme Q10 [CoQ-10] 30 mg Capsule 30 mg PO DAILY RF: 0 multivitamin Tablet 1 tab PO DAILY RF: 0 pravastatin 40 mg tablet 40 mg PO DAILY RF: 0 acetaminophen [Tylenol Extra Strength] 500 mg Tablet 1,000 mg PO PRN RF: 0 lisinopril 5 mg tablet 5 mg PO BID RF: 0 glucosamine-chondroitin [Osteo Bi-Flex] 250-200 mg Tablet 1 tab PO DAILY RF: 0 tramadol 50 mg tablet 50 mg PO Q8H PRN (Reason: pain) Qty: 20 RF: 0 lactulose 10 gram/15 mL solution 20 g PO DAILY PRN (Reason: constipation) Qty: 473 RF: 0 Discharge Orders: Discharge Order (Routine); Ordered 07/11/20 Ordered By: Sarah Bolton Referrals: Abdiel Patricio MD [Physician] - 07/26/20 8:45 am (Your 2 week postop visit has been scheduled for 07/26/2020 at 8:45 am. Your 6 week postop visit has been scheduled for 08/20/2020 at 2:45 am.) Patient Instructions: Cystoscopy, Lisinopril (By mouth), Acetaminophen (By mouth), Laxative, Stool Softeners (By mouth), Multivitamins, Adult Formula (By mouth), Lactulose (By mouth), Pravastatin (By mouth), Conjugated Estrogens (Vaginal), Tramadol (By mouth), Coenzyme Q10 (By mouth), Chondroitin Sulfate/Glucosamine Hydrochloride (By mouth), Cholecalciferol (By mouth), [place] paroscopically Assisted Vaginal Hysterectomy (DC), OB Discharge Report, OB Food/Drug Interaction Guide Discharge Attestations Time Spent in Discharge Care*: less than 30 min Quality Metrics Clinical Quality Measures During this hospital stay, did patient experience: None Coding Level of Care Code Acute Punchboard Filling Machine Operator for Chg Fwd Exam Detailed Diagnoses Incomplete uterovaginal prolapse N81.2
[2020-07-11] MEDS: ibuprofen 600 mg Tablet PO (09:35)
[2020-07-11] MEDS: lisinopril 5 mg Tablet PO (09:35)
[2020-07-11] MEDS: docusate sodium 100 mg Capsule PO (09:35)
[2020-07-11] MEDS: phenazopyridine 100 mg Tablet 200 MG PO (09:35)
[2020-07-11 10:15] VITALS: BP 173/61; PULSE 80; RESP 16; TEMP 36.9; O2SAT 98
[2020-07-11 11:50] VITALS: BP 170/82; PULSE 82; RESP 16; TEMP 36.8; O2SAT 97
== END 2020-07-11 12:00 | disposition home or self-care (01) ==
LOC: OBGYN 10:24
PROVIDERS: Admitting Provider Obstetrics & Gynecology; PCP Nurse Practitioner Family; Visit Provider Obstetrics & Gynecology
PROC: 0UT94ZZ Resection of Uterus, Percutaneous Endoscopic Approach (ICD-10-PCS; CPT 57425; principal; 2020-07-10 07:00)
PROC: 0USG4ZZ Reposition Vagina, Percutaneous Endoscopic Approach (ICD-10-PCS; CPT 57425; 2020-07-10 07:00)
PROC: 0TJB8ZZ Inspection of Bladder, Via Natural or Artificial Opening Endoscopic (ICD-10-PCS; CPT 52000; 2020-07-10 07:00)
PROC: 0UT9FZZ Resection of Uterus, Via Natural or Artificial Opening With Percutaneous Endoscopic Assistance (ICD-10-PCS; CPT 57425; 2020-07-10 07:00)
DX: N81.2 Incomplete uterovaginal prolapse (principal); I10 Essential (primary) hypertension; E78.5 Hyperlipidemia, unspecified
CPT/HCPCS: 57425; 58550; 36415; 36592; 51702; 85025; 85027; 86850; 86900; 88307; 96361; 96374; 96375; G0378; J0690; J2250; J2270; J3490; J7030; J7040

== ENCOUNTER → 2020-07-26 09:21 | Outpatient (BNVA) | payer MEDICARE, SELFPAY | PROVIDERS: PCP Nurse Practitioner Family; Visit Provider Obstetrics & Gynecology | DX: R39.9 Unspecified symptoms and signs involving the genitourinary system (principal); N39.0 Urinary tract infection, site not specified; R39.15 Urgency of urination | CPT/HCPCS: 81000; 87077; 87086; 87184 ==

== ENCOUNTER 2020-08-15 09:01 | Emergency (ER) | payer MEDICARE, SELFPAY ==
[2020-08-15 09:02] VITALS: BP 195/77; PULSE 76; RESP 14; TEMP 36.9; O2SAT 97; BMI 15.9
--- NOTE | 2020-08-15 09:10 | ECG_ITS ---
[facility] Test Date: 2020-08-15 Pat Name: Marilynn Sams Department: Room: Gender: Female Risk Control Representative: : 1940 Requested By: Roxann Amador Order Number: [id number] Samaria MD: Tod Logan M.D. Measurements Intervals Duncan Rate: 64 P: 83 DE: 172 QRS: 12 QRSD: 77 T: 89 QT: 409 QTc: 425 Interpretive Statements SINUS RHYTHM Compared to ECG 07/05/2020 11:44:56 T-wave abnormality no longer present Electronically Signed On 08-15-2020 17:50:27 CDT by Tod Logan M.D. [id number]
--- NOTE | 2020-08-15 09:27 | ED_ITS ---
HPI - Nausea/Vomiting/Diarrhea General: Chief complaint: Nausea/Vomiting/Diarrhea Stated complaint: DEHYDRATION, VOMITING, ABNORMAL WEIGHT LOSS Time Seen by Provider: 08/15/20 09:05 History of Present Illness: HPI Narrative: This patient is an 79 year old female who lives at home with her . She presents today with vomiting and nausea for the past 4 or 5 days. She has been having pelvic pain for some time and had a hysterectomy a month ago in hopes that it would solve her issues. She continues to have the same pain that she had prior to the surgery. She was seen in follow up two weeks ago and had urinary symptoms and hematuria - she was found to have a UTI and culture grew e coli. She was treated with cephalexin and her symptoms of dysuria improved but she is still having the same pelvic pain. She says that Dr. Patricio has referred her to Dr. Moser for further evaluation of this pain. She is here today due to concerns for dehydration and her inability to keep down fluids or food. She is on tramadol for pain, and has been on that without changes since before the surgery. She has lost 8 pounds in the past month and weighed less than 100 pounds at baseline. She has a history of HTN and has had multiple eye surgeries for glaucoma and cataracts. She has diet controlled diabetes. No fever, cough, chest pain. No sick contacts. She has some intermittent constipation but no different than normal - controlled with miralax when needed. MD elicited complaint: nausea, vomiting and abdominal pain Pertinent past history: abdominal surgery Onset (ago): day(s) (4) Description of vomiting: food contents and watery Associated nausea: Yes Associated abdominal pain: Yes Location of pain: LUQ, RUQ and Other (chronic pelvic pain as well) Radiation: does not radiate Pain consistency: constant Severity: moderate Quality: cramping Exacerbating factors: eating Relieving factors: none Context: recent surgery/procedure Associated symtoms: Reports fatigue, anorexia, malaise and nausea; Denies change in vision, chest pain, cough, fevers/chills or headache(s) Treatment prior to arrival: other OTC medicine (gaviscon) Review of Systems General: Reports: 10 or more systems reviewed and unremarkable except in HPI and below Const: Reports: fatigue and malaise Eyes: Denies: change in vision ENMT: Denies: odynophagia Card: Denies: chest pain Resp: Denies: dyspnea, productive cough or non-productive cough GI: Reports: nausea and constipation; Denies: change in bowel habits : Reports: hematuria and pelvic pain; Denies: flank pain or difficulty voiding Musc: Denies: neck pain or back pain Skin/Breast: Denies: rash Neuro: Denies: headache(s), numbness in extremities or weakness in extremities Abdon/Lymph: Denies: easy bruising or easy bleeding PFSH ED PFSH: Medical History Borderline diabetes mellitus Diverticulosis GERD (gastroesophageal reflux disease) Glaucoma Had eye surgery 2018 to treat glaucoma Hyperlipidemia Hypertension Malignant neoplasm of upper-outer quadrant of right female breast (~11/2014) Stage IA, infiltrating ductal carcinoma, grade 2/3, pT1c, N0, M0, ER/MN positive, HER-2/moncho negative. Postmenopausal osteoporosis Scleroderma Surgical History S/P appendectomy (~1968) S/P breast biopsy, right (~1995) Performed in [place], [place]. Benign per patient. S/P BSO (bilateral salpingo-oophorectomy) (06/19/15) Laparoscopic. [place] [facility] [place] S/P cholecystectomy (~1968) Performed in [place], [place]. S/P eye surgery (~2018) Cataracts and glaucoma. Performed by Dr. Jenkins at [facility]. S/P laparoscopic assisted vaginal hysterectomy (LAVH) (07/10/20) LAVH, laparoscopic USLS with enterocele repair, cystoscopy. Dx: Incomplete uterovaginal prolapse. Performed by Dr. Patricio at [facility] in [place], [place]. S/P lumpectomy, left breast (~10/2001) [place] [facility] [place] per [place]. S/P lumpectomy, right breast (11/30/14) With sentinel node biopsy. Infiltrating ductal carcinoma of the upper outer quadrant of the right breast. [place] Iglesias [place] [facility] [place] Family History Mother Heart disease Grandfather Diabetes Paternal Grandmother Breast cancer Maternal. MGM had a breast removed, unsure if it was breast cancer as she was a young child. Social History Smoking and tobacco status: never smoked Alcohol intake: never Physical Exam Const: COMMON NORMALS: no acute distress, patient oriented x3, no limitations and alert GENERAL APPEARANCE: cooperative and comfortable HENMT: HEAD & SCALP: normal to inspection FACE & SINUS: normal facial exam Eye: GENERAL EYE: appearance normal, both eyes and all related structures Neck/C-Spine: COMMON NORMALS: supple, no meningeal signs and no JVD Chest: COMMONS NORMALS: normal inspection of the chest Resp: COMMON NORMALS: normal respiratory effort, No use of accessory muscles and clear to auscultation bilaterally AUSCULTATION: clear to auscultation bilaterally Cardio: COMMON NORMALS: no JVD, regular rate, regular rhythm and No murmurs present (Cardio) RATE: regular rate RHYTHM: regular rhythm GI: COMMON NORMALS: Normal to inspection, nondistended, normoactive bowel sounds present INSPECTION: Yes normal to inspection AUSCULTATION: Yes normoactive bowel sounds PALPATION: Yes Tenderness to palpation present (GI) Details: RLQ PERCUSSION: normal to percussion Back/Pelvis: COMMON NORMALS: thoracic and lumbar spine normal to inspection Extremity: COMMON NORMALS: normal to inspection Neuro: COMMON NORMALS: patient oriented x3, moves all extremities, no focal motor deficits and no sensory deficits noted SENSORIUM/ORIENTATION: Yes alert MENINGEAL SIGNS: Yes no meningeal signs Psych: COMMON NORMALS: mental status grossly normal, cooperative and normal affect Skin: COMMON NORMALS: no rashes or lesions noted and turgor normal GENERAL SKIN EXAM: no rashes or lesions noted and turgor normal Course ED course: Labs, EKG, CT unremarkable today. Symptoms improved with zofran and fluids. Offered admission for more IV hydration, however patient is comfortable with going home and she has good outpatient follow up in place. Will send her with ODT zofran and she understands return precautions. Vital Signs: Vital signs: Vital Signs Temperature 98.5 F 08/15/20 09:02 Pulse Rate 72 08/15/20 14:16 Respiratory Rate 18 08/15/20 14:16 Blood Pressure 185/74 08/15/20 14:16 Pulse Oximetry 97 08/15/20 14:16 MDM - Nausea/Vomiting/Diarrhea MDM Narrative: Medical decision making narrative: gastroenteritis, post surgical complication, bowel obstruction, electrolyte abnormalities, dehydration Lab Data: Labs: Lab Results 08/15/20 08/15/20 08/15/20 Range/Units 09:30 09:30 09:30 WBC 10.5 H (4.0-10.0) 10^3/ uL RBC 4.57 (4.1-5.3) 10^6/u L Hgb 13.0 (11.5-15.3) g/dL Hct 40.4 (37.0-47.0) % MCV 88.4 (81-99) fL MCH 28.4 (28.0-34.0) pg MCHC 32.2 (30.0-36.0) g/dL RDW 13.2 (12.1-15.1) % Plt Count 367 (130-400) 10^3/c mm MPV 10.0 (7.4-10.4) fL Neut % (Auto) 82.4 % Lymph % (Auto) 9.7 % [place] % (Auto) 7.0 % Eos % (Auto) 0.3 % Baso % (Auto) 0.3 % Neut # (Auto) 8.63 H (1.8-7.7) 10^3/u L Lymph # (Auto) 1.0 (0.8-4.8) 10^3/u L [place] # (Auto) 0.7 (0.2-0.9) 10^3/u L Eos # (Auto) 0.0 (0.0-0.8) 10^3/u L Baso # (Auto) 0.0 (0.0-0.1) 10^3/u L Nucleated RBC % (a uto) 0 % Nucleated RBCs # 0.0 /100WBC Sodium 134 L (136-145) mmol/L Potassium 4.0 (3.5-5.1) mmol/L Chloride 95 L (98-107) mmol/L Carbon Dioxide 27 (22-29) mmol/L Anion Gap 16.0 (5-19) BUN 8 (8-23) mg/dL Creatinine 0.4 L (0.5-0.9) mg/dL GFR Calculation Not Reportable Glucose 116 H (65-115) mg/dL Calculated Osmolal ity 277 L (285-295) mOsm/k g Calcium 9.8 (8.5-10.5) mg/dL Total Bilirubin 0.6 (0.15-1.2) mg/dL AST 17 (0-32) U/L ALT 6 (0-33) U/L Alkaline Phosphata se 66 (35-105) IU/L Troponin T Baselin e Cancelled Troponin T 120 Min kenaitze (0-10) ng/L Delta Troponin T (0-10) ABS# Total Protein 7.0 (6.6-8.7) g/dL Albumin 4.5 (3.5-5.2) g/dL Globulin 2.5 (1.3-4.6) g/dL Lipase 41 (13-60) U/L Urine Color (Yellow) Urine Appearance (CLEAR) Urine pH (5-7) Ur Specific Gravit y (1.005-1.030) Urine Protein (Negative) Urine Glucose (UA) (Normal) Urine Ketones (Negative) Urine Blood (Negative) Urine Nitrate (Negative) Urine Bilirubin (Negative) Urine Urobilinogen (Negative) mg/dL Ur Leukocyte Stefania ase (Negative) Urine RBC (0-2) /hpf Urine WBC (0-5) /hpf Ur Squamous Epith Cells (0-5) /hpf Amorphous Sediment Urine Bacteria (NONE) /hpf Urine Mucus /hpf 08/15/20 08/15/20 08/15/20 Range/Units 09:40 10:22 12:18 WBC (4.0-10.0) 10^3/ uL RBC (4.1-5.3) 10^6/u L Hgb (11.5-15.3) g/dL Hct (37.0-47.0) % MCV (81-99) fL MCH (28.0-34.0) pg MCHC (30.0-36.0) g/dL RDW (12.1-15.1) % Plt Count (130-400) 10^3/c mm MPV (7.4-10.4) fL Neut % (Auto) % Lymph % (Auto) % [place] % (Auto) % Eos % (Auto) % Baso % (Auto) % Neut # (Auto) (1.8-7.7) 10^3/u L Lymph # (Auto) (0.8-4.8) 10^3/u L [place] # (Auto) (0.2-0.9) 10^3/u L Eos # (Auto) (0.0-0.8) 10^3/u L Baso # (Auto) (0.0-0.1) 10^3/u L Nucleated RBC % (a uto) % Nucleated RBCs # /100WBC Sodium (136-145) mmol/L Potassium (3.5-5.1) mmol/L Chloride (98-107) mmol/L Carbon Dioxide (22-29) mmol/L Anion Gap (5-19) BUN (8-23) mg/dL Creatinine (0.5-0.9) mg/dL GFR Calculation Glucose (65-115) mg/dL Calculated Osmolal ity (285-295) mOsm/k g Calcium (8.5-10.5) mg/dL Total Bilirubin (0.15-1.2) mg/dL AST (0-32) U/L ALT (0-33) U/L Alkaline Phosphata se (35-105) IU/L Troponin T Baselin e 10 Troponin T 120 Min kenaitze 11.08 H (0-10) ng/L Delta Troponin T 1.08 (0-10) ABS# Total Protein (6.6-8.7) g/dL Albumin (3.5-5.2) g/dL Globulin (1.3-4.6) g/dL Lipase (13-60) U/L Urine Color Yellow (Yellow) Urine Appearance Sl hazy (CLEAR) Urine pH 6.5 (5-7) Ur Specific Gravit y 1.015 (1.005-1.030) Urine Protein Neg (Negative) Urine Glucose (UA) Norm (Normal) Urine Ketones 2+ H (Negative) Urine Blood Neg (Negative) Urine Nitrate Negative (Negative) Urine Bilirubin Neg (Negative) Urine Urobilinogen Norm (Negative) mg/dL Ur Leukocyte Stefania ase Negative (Negative) Urine RBC None (0-2) /hpf Urine WBC Rare (0-5) /hpf Ur Squamous Epith Cells 25-40 H (0-5) /hpf Amorphous Sediment Not Reportable Urine Bacteria 1+ H (NONE) /hpf Urine Mucus 1+ /hpf Discharge Plan Discharge Patient Disposition: Home Clinical Impression: Abnormal weight loss, Chronic pelvic pain in female Nausea & vomiting Qualifiers: Vomiting type: unspecified Vomiting Intractability: unspecified Qualified Code(s): R11.2 - Nausea with vomiting, unspecified Condition: Stable Prescriptions: New ondansetron 4 mg tablet,disintegrating 4 mg PO Q6H PRN (Reason: nausea and vomiting) Qty: 20 RF: 0 No Action cholecalciferol (vitamin D3) 25 mcg (1,000 unit) capsule 1,000 unit PO DAILY@08 RF: 0 docusate sodium [Colace] 100 mg capsule 100 mg PO DAILY PRN (Reason: Constipation (2nd)) RF: 0 polyethylene glycol 3350 [ClearLax] 17 gram/dose powder 17 g PO DAILY PRN (Reason: Constipation (1st)) RF: 0 tramadol 50 mg tablet 50 mg PO BID PRN (Reason: pain) Qty: 30 RF: 0 Premarin 0.625 mg/gram cream See Rx Instructions .ROUTE .COMPLEX RF: 0 CoQ-10 1 tab PO DAILY@08 RF: 0 multivitamin Tablet 1 tab PO DAILY PRN (Reason: unknown) RF: 0 pravastatin 40 mg tablet 40 mg PO DAILY@21 RF: 0 acetaminophen [Tylenol Extra Strength] 500 mg Tablet 1,000 mg PO PRN RF: 0 lisinopril 5 mg tablet 5 mg PO BID@08,18 RF: 0 glucosamine-chondroitin [Osteo Bi-Flex] 250-200 mg Tablet 1 tab PO DAILY@08 RF: 0 Discharge Orders: Discharge ED (Routine); Ordered 08/15/20 Ordered By: Roxann Rosario Referrals: Kalpana Ahn NP [Primary Care Provider] - Discharge Diet: Advance as tolerated Discharge Activity: Increase activity as tolerated Patient Instructions: Acute Nausea and Vomiting (ED), Opioid Safety Activity Restrictions/Additional Instructions: eat small amounts of nutritious foods that sound appealing. Use the prescribed medicine for nausea as needed. Return to the ED if new or worse symptoms or if not able to keep down fluids. Keep your follow up appointments with Dr. Patricio and Dr. Moser as scheduled. 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
[2020-08-15] MEDS: ondansetron 2 mg/ML SDV 2 mL 4 MG IVP ×2 (09:46→13:35)
[2020-08-15] MEDS: sodium chloride 0.9% 500 ML 999 ML IV (09:47)
[2020-08-15 09:50] VITALS: PULSE 65; RESP 18; O2SAT 99
[2020-08-15 09:51] LABS: Basophils % 0.3 %; Eosinophils % 0.3 %; Hematocrit 40.4 % (37.0-47.0); Lymphocytes % 9.7 %; Mean Corpuscular HGB Conc 32.2 g/dL (30.0-36.0); Mean Corpuscular Hemoglobin 28.4 pg (28.0-34.0); Mean Corpuscular Volume 88.4 fL (81-99); Monocytes # 0.7 10^3/uL (0.2-0.9); Neutrophils # 8.63 10^3/uL (1.8-7.7); Neutrophils % 82.4 %; Nucleated Red Blood Cells % 0 %; Platelet Count 367 10^3/cmm (130-400); Red Blood Count 4.57 10^6/uL (4.1-5.3); Red Cell Distribution Width 13.2 % (12.1-15.1); White Blood Count 10.5 10^3/uL (4.0-10.0)
[2020-08-15 09:58] LABS: Add Urine Microscopic? YES; Bilirubin Urine Neg (Negative); Blood Urine Neg (Negative); Glucose Urine UA Norm (Normal); Ketones Urine 2+ (Negative); Leukocyte Esterase Urine Negative (Negative); Nitrate Urine Negative (Negative); Protein Urine Neg (Negative); Specific Gravity, Urine 1.015 (1.005-1.030); Urine Appearance SL Hazy (CLEAR); Urine Color Yellow (Yellow); Urobilinogen Urine Norm (Negative); pH Urine 6.5 (5-7)
[2020-08-15 10:10] LABS: Add Urine Culture? No; Bacteria Urine 1+ /hpf; Mucus Urine 1+ /hpf; Squamous Epithelial Cell Urine 25-40 /hpf (0-5); WBC Urine RARE /hpf (0-5)
[2020-08-15 10:16] LABS: Alanine Aminotransferase 6 U/L (0-33); Albumin Level 4.5 g/dL (3.5-5.2); Alkaline Phosphatase 66 IU/L (35-105); Aspartate Amino Transferase 17 U/L (0-32); Blood Urea Nitrogen 8 mg/dL (8-23); Calcium 9.8 mg/dL (8.5-10.5); Carbon Dioxide 27 mmol/L (22-29); Chloride 95 mmol/L (98-107); Globulin 2.5 g/dL (1.3-4.6); Glucose 116 mg/dL (65-115); Lipase 41 U/L (13-60); Osmolality Calculated 277 mOsm/kg (285-295); Sodium 134 mmol/L (136-145); Total Bilirubin 0.6 mg/dL (0.15-1.2)
[2020-08-15 10:25] VITALS: BP 204/67; PULSE 64; RESP 18; O2SAT 98
[2020-08-15 10:55] LABS: Troponin(5th) Baseline 10 ng/L (0-10)
--- NOTE | 2020-08-15 11:10 | ECG_ITS ---
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 Measurements Intervals [place] Rate: 68 P: 77 CA: 182 QRS: 3 QRSD: 79 T: 91 QT: 399 QTc: 424 Interpretive Statements SINUS RHYTHM NONSPECIFIC T-WAVE ABNORMALITY Compared to ECG 08/15/2020 09:24:29 T-wave abnormality now present Electronically Signed On 08-15-2020 17:55:20 CDT by Tod Logan M.D. [id number]
[2020-08-15 12:00] VITALS: BP 182/75; PULSE 66; RESP 19; O2SAT 93
--- NOTE | 2020-08-15 12:21 | CT_ITS ---
WS: [id number] CT ABDOMEN AND PELVIS WITH CONTRAST HISTORY: nausea, vomiting, recent hysterectomy TECHNIQUE: Imaging performed of the abdomen and pelvis with IV contrast. Single phase imaging of the abdomen. Coronal and sagittal reformats are submitted. All CT scans at [facility] use at least one of these dose optimization techniques: automated exposure control; mA and/or kV adjustment per patient size (includes targeted exams where dose is matched to clinical indication); or iterativ e reconstruction. IV CONTRAST: Omnipaque 300; 95 mL IV. Oral contrast: No DLP: 672.22 mGy.cm COMPARISON: 04/20/2020 Lower thorax: Lung bases are clear. . Mild enlargement of the heart. Small hiatal hernia. Liver/biliary system: Normal size liver. Steatosis along the falciform ligament. Minimal dilatation o f the central bile ducts may be related to cholecystectomy. Gallbladder: Status post cholecystectomy. Pancreas: Normal. Spleen: Numerous peripheral calcifications. No suspicious mass or interval change. Adrenal glands: Normal. Right kidney: Normal. Left kidney: Small cortical hypodensities are too small to characterize. No solid mass or obstruction . Aorta: Mild atherosclerosis with no aneurysm. Lymphadenopathy: None. Free fluid: None. GI tract: Mild diffuse constipation. No obstructive pattern or wall thickening. No ischemic changes. Appendix is not identified and surgically absent. Distal colon diverticula with no evidence for acute diverticulitis. Abdominal wall: Unremarkable abdominal wall. No hernia. Pelvis: Prior hysterectomy. No hematoma or fluid or abscess in the pelvis. Bones: Advanced degenerative disc disease at L5-S1. Stable sclerotic focus in the RIGHT ilium. CT/CT abdomen pelvis w con* [id number] IMPRESSION: 1. No acute abdominal or pelvic abnormalities. 2. Status post hysterectomy. No pelvic abscess or hematoma. 3. Mild diffuse constipation. 4. Mild diverticulosis with no evidence for acute diverticulitis. 5. Prior cholecystectomy.
[2020-08-15] MEDS: iohexol 300 mg/mL 100 mL Btl IV (12:45)
[2020-08-15 12:56] LABS: Troponin 5 2HR 11.08 ng/L (0-10); Troponin 5 2HR Delta 1.08 ABS# (0-10)
[2020-08-15 14:16] VITALS: BP 185/74; PULSE 72; RESP 18; O2SAT 97
== END 2020-08-15 14:12 | disposition home or self-care (01) ==
PROVIDERS: Emergency Provider Emergency Medicine; PCP Nurse Practitioner Family
DX: R11.2 Nausea with vomiting, unspecified (principal); G89.29 Other chronic pain; R10.2 Pelvic and perineal pain; R63.4 Abnormal weight loss; E78.5 Hyperlipidemia, unspecified; I10 Essential (primary) hypertension; Z85.3 Personal history of malignant neoplasm of breast
CPT/HCPCS: 74177; 80053; 81001; 83690; 84484; 85025; 93005; 96374; 96376; 99284; J2405; J7040; Q9967

== ENCOUNTER → 2020-09-11 10:46 | Outpatient (BNVA) | payer MEDICARE, SELFPAY | PROVIDERS: PCP Nurse Practitioner Family; Visit Provider Urology | DX: N30.00 Acute cystitis without hematuria (principal) | CPT/HCPCS: 81003; 87077; 87086; 87184 ==

== ENCOUNTER → 2020-10-05 12:56 | Outpatient (BNVA) | payer MEDICARE, SELFPAY | PROVIDERS: PCP Nurse Practitioner Family; Visit Provider Urology | DX: N30.90 Cystitis, unspecified without hematuria (principal); R10.2 Pelvic and perineal pain | CPT/HCPCS: 81003; 87077; 87086; 87184; 88112 ==

== ENCOUNTER 2020-11-12 13:39 | Outpatient (CLI) | payer MEDICARE, SELFPAY ==
--- NOTE | 2020-11-12 13:45 | MM_ITS ---
WS: [id number] BILATERAL DIGITAL DIAGNOSTIC MAMMOGRAM MAMMOGRAPHY WITH CAD CLINICAL INFORMATION: HISTORY OF BREAST CANCER COMPARISON: November 10, 2019 TECHNIQUE: Bilateral CC, MLO, and ML views. FINDINGS: The breasts are composed of heterogeneous fibroglandular density, which can limit the detection of sm all underlying mass lesions. Punctate and lucent centered calcifications. Vascular calcification. Pos toperative changes right breast with lumpectomy and parenchymal scarring. Treatment-related changes r ight breast. Postoperative changes upper outer left breast with parenchymal scarring. No suspicious focal mass, asymmetry, calcifications, or architectural distortion. No evidence of jace gnancy. MM/[place] [id number] IMPRESSION: BI-RADS: 2-Benign FOLLOW UP: 1 Year Follow-up Recommend return to annual diagnostic mammography.
== END 2020-11-12 13:40 | disposition home or self-care (01) ==
LOC: RADSHAW 13:42
PROVIDERS: PCP Nurse Practitioner Family; Visit Provider Nurse Practitioner Family
DX: Z85.3 Personal history of malignant neoplasm of breast (principal)
CPT/HCPCS: 77066

== ENCOUNTER 2020-12-10 12:53 | Outpatient (RCR) | payer MEDICARE, SELFPAY | END 2020-12-22 23:59 | disposition home or self-care (01) | LOC: SPT 12:53 | PROVIDERS: PCP Nurse Practitioner Family; Referring Provider Obstetrics & Gynecology; Visit Provider Obstetrics & Gynecology | DX: R10.2 Pelvic and perineal pain (principal) | CPT/HCPCS: 97110; 97161; 97530 ==

== ENCOUNTER 2020-12-23 06:00 | Outpatient (RCR) | payer MEDICARE, SELFPAY | END 2021-01-22 23:59 | disposition home or self-care (01) | LOC: SPT 06:00 | PROVIDERS: PCP Nurse Practitioner Family; Referring Provider Obstetrics & Gynecology; Visit Provider Obstetrics & Gynecology | DX: R10.2 Pelvic and perineal pain (principal) | CPT/HCPCS: 97110; 97112; 97530 ==

== ENCOUNTER 2021-01-23 06:00 | Outpatient (RCR) | payer MEDICARE, SELFPAY | END 2021-02-21 23:59 | disposition home or self-care (01) | LOC: SPT 06:00 | PROVIDERS: PCP Nurse Practitioner Family; Referring Provider Obstetrics & Gynecology; Visit Provider Obstetrics & Gynecology | DX: R10.2 Pelvic and perineal pain (principal) | CPT/HCPCS: 97110 ==

== ENCOUNTER → 2022-02-04 15:30 | Outpatient (BNVA) | payer BC, SELFPAY | PROVIDERS: PCP Nurse Practitioner Family; Visit Provider Obstetrics & Gynecology | DX: N30.90 Cystitis, unspecified without hematuria (principal) | CPT/HCPCS: 81000; 87077; 87086; 87184 ==

== ENCOUNTER 2022-02-25 08:48 | Outpatient (CLI) | payer MEDICARE, SELFPAY ==
--- NOTE | 2022-02-25 08:58 | MM_ITS ---
WS: [id number] DIAGNOSTIC BILATERAL DIGITAL BREAST TOMOSYNTHESIS MAMMOGRAPHY WITH CAD LEFT breast ultrasound, limited HISTORY: Z85.3 - Personal history of malignant neoplasm of breast History RIGHT breast cancer. Bilateral biopsies. New focal palpable nodule. COMPARISON: 11/12/2020, 6 09/15/2018 TECHNIQUE: Bilateral craniocaudad, mediolateral oblique, and mediolateral views are submitted with to mosynthesis and SM. Spot compression LEFT MLO. Computer aided detection utilized. Breast composition: The breasts are heterogeneously dense, which may obscure small masses. Significan t architectural distortion and asymmetric densities in the upper-outer quadrant of each breast are si milar to prior studies. These changes are related to prior surgery and biopsies. The new palpable abn ormality is near 5:00. There is a soft tissue mass with irregular margins best seen on the CC project ion and the spot MLO. Measures approximately 9 mm. LEFT breast ultrasound, limited. Ultrasound is directed to the Probable area at 5:00 in the posterior breast. There is a focal area of shadowing with angular margin s and spiculation with increased vascularity at 5:00, 2 cm from the nipple. This mass measures 10 x 9 x 10 mm. MM/[place] [id number] IMPRESSION: BI-RADS: 5-Highly Suggestive of Malignancy FOLLOW UP: Biopsy Recommended Ultrasound-guided biopsy recommended LEFT breast mass at 5:00. Notified Notified Sarah Bolton MD at 02/25/2022 2:16 PM. BI-RADS 5 -- highly suggestive of malignancy
--- NOTE | 2022-02-25 09:35 | US_ITS ---
WS: [id number] DIAGNOSTIC BILATERAL DIGITAL BREAST TOMOSYNTHESIS MAMMOGRAPHY WITH CAD LEFT breast ultrasound, limited HISTORY: Z85.3 - Personal history of malignant neoplasm of breast History RIGHT breast cancer. Bilateral biopsies. New focal palpable nodule. COMPARISON: 11/12/2020, 6 09/15/2018 TECHNIQUE: Bilateral craniocaudad, mediolateral oblique, and mediolateral views are submitted with to mosynthesis and SM. Spot compression LEFT MLO. Computer aided detection utilized. Breast composition: The breasts are heterogeneously dense, which may obscure small masses. Significan t architectural distortion and asymmetric densities in the upper-outer quadrant of each breast are si milar to prior studies. These changes are related to prior surgery and biopsies. The new palpable abn ormality is near 5:00. There is a soft tissue mass with irregular margins best seen on the CC project ion and the spot MLO. Measures approximately 9 mm. LEFT breast ultrasound, limited. Ultrasound is directed to the Probable area at 5:00 in the posterior breast. There is a focal area of shadowing with angular margin s and spiculation with increased vascularity at 5:00, 2 cm from the nipple. This mass measures 10 x 9 x 10 mm. US/US breast LT limited* [id number] IMPRESSION: BI-RADS: 5-Highly Suggestive of Malignancy FOLLOW UP: Biopsy Recommended Ultrasound-guided biopsy recommended LEFT breast mass at 5:00. Notified Notified Sarah Bolton MD at 02/25/2022 2:16 PM. BI-RADS 5 -- highly suggestive of malignancy
== END 2022-02-25 08:49 | disposition home or self-care (01) ==
PROVIDERS: PCP Family Medicine; Visit Provider Obstetrics & Gynecology
DX: Z85.3 Personal history of malignant neoplasm of breast (principal)
CPT/HCPCS: 76642; 77062

== ENCOUNTER 2022-03-07 07:42 | Outpatient (CLI) | payer MEDICARE, SELFPAY ==
--- NOTE | 2022-03-07 07:58 | US_ITS ---
WS: [email or web address] ULTRASOUND-GUIDED LEFT BREAST BIOPSY CLINICAL INFORMATION: N63.20 - Unspecified lump in the left breast, unspecified... FINDINGS: Note pre-biopsy Ultrasound demonstrates an area of suspected local invasion with ductal ext ension eccentric to the 5:00 breast lesion. This appears contiguous with the main lesion and is kaleb r seen today compared to previous. Primary lesion has spiculated irregular margins. The procedure including risks, benefits, and complications were discussed with the patient who agreed to proceed. Using sterile technique patient was prepped and draped in the usual sterile fashion. Aft er 1% lidocaine utilizing real-time ultrasound guidance 5 14-gauge cores were obtained of the LEFT br east lesion at the 5 o'clock position. Subsequently a titanium clip was placed in the biopsy cavity. No immediate complications. Pathology demonstrates A. Breast, left breast, 5 o'clock, 2 cm from nipple , ultrasound-guided biopsy: - Invasive ductal carcinoma. - Gonzalez Mckeon grade 3 (score 7). - Ductal carcinoma in situ, grade 2. - Breast profile has been performed and will be reported separately. US/[place] [id number] IMPRESSION: 1. Uncomplicated ultrasound-guided LEFT breast biopsy. 2. The pathology demonstrates invasive ductal carcinoma 3. Recommend breast surgery consultation for resection BI-RADS: 6-Known Biopsy-Proven Malignancy FOLLOW UP: Surgical Biopsy Recommended *Note Ultrasound demonstrates an area of suspected local invasion with ductal e xtension eccentric to the 5:00 breast lesion. This appears contiguous with the main lesion.
[2022-03-13 09:29] LABS: Breast Profile ER,PR,HER2,Ki-6 See Report
== END 2022-03-07 07:43 | disposition home or self-care (01) ==
PROVIDERS: PCP Family Medicine; Visit Provider Obstetrics & Gynecology
DX: R92.8 Other abnormal and inconclusive findings on diagnostic imaging of breast (principal); C50.512 Malignant neoplasm of lower-outer quadrant of left female breast
CPT/HCPCS: 19083; 88305; 88361; 88374

== ENCOUNTER 2022-03-19 15:37 | Oncology outpatient (recurring) (ONCR) | payer MEDICARE, SELFPAY | END 2022-03-24 23:59 | disposition home or self-care (01) | PROVIDERS: PCP Family Medicine; Visit Provider Internal Medicine Medical Oncology | DX: Z17.0 Estrogen receptor positive status [ER+]; C50.512 Malignant neoplasm of lower-outer quadrant of left female breast | CPT/HCPCS: 99205 ==

== ENCOUNTER → 2022-05-13 14:55 | Outpatient (BNVA) | payer MEDICARE, SELFPAY | PROVIDERS: PCP Family Medicine; Visit Provider Surgery | DX: C50.512 Malignant neoplasm of lower-outer quadrant of left female breast (principal) | CPT/HCPCS: 99203 ==

== ENCOUNTER 2022-06-12 08:10 | Day surgery (SDC) | payer MEDICARE, SELFPAY ==
[2022-06-10 14:10] VITALS: BMI 16.5
[2022-06-12] VITALS (9 sets, daily range): BP systolic 138–199; BP diastolic 73–99; PULSE 80–94; RESP 16–20; TEMP 36.1–36.5; O2SAT 95–99
--- NOTE | 2022-06-12 | US_ITS ---
WS: [email or web address] ULTRASOUND-GUIDED LEFT BREAST NEEDLE LOCALIZATION CLINICAL INFORMATION: Left breast needle loc for lumpectomy FINDINGS: The procedure including risks, benefits, and complications were discussed with the patient who agreed to proceed. Timeout was performed. Using sterile technique patient was prepped and draped in the usu al sterile fashion. After 1% lidocaine, utilizing real-time ultrasound guidance, 7cm Kopans needle ad vanced into the hypoechoic 5:00 LEFT breast lesion. Next, additional 7 cm Kopans needle was advanced into a contiguous ductal branching arm of the 5:00 l esion No immediate complications. US/US surgical specimen IMPRESSION: 1. Uncomplicated ultrasound-guided LEFT breast needle localization. 2. Ultrasound of the surgical specimen demonstrates gross total resection with intact localization wires. BI-RADS: 6-Known Biopsy-Proven Malignancy FOLLOW UP: See Report
--- NOTE | 2022-06-12 08:00 | NM_ITS ---
WS: [email or web address] ULTRASOUND-GUIDED LEFT BREAST NEEDLE LOCALIZATION CLINICAL INFORMATION: Left breast needle loc for lumpectomy FINDINGS: The procedure including risks, benefits, and complications were discussed with the patient who agreed to proceed. Timeout was performed. Using sterile technique patient was prepped and draped in the usu al sterile fashion. After 1% lidocaine, utilizing real-time ultrasound guidance, 7cm Kopans needle ad vanced into the hypoechoic 5:00 LEFT breast lesion. Next, additional 7 cm Kopans needle was advanced into a contiguous ductal branching arm of the 5:00 l esion No immediate complications.
--- NOTE | 2022-06-12 08:31 | US_ITS ---
WS: [email or web address] ULTRASOUND-GUIDED LEFT BREAST NEEDLE LOCALIZATION CLINICAL INFORMATION: Left breast needle loc for lumpectomy FINDINGS: The procedure including risks, benefits, and complications were discussed with the patient who agreed to proceed. Timeout was performed. Using sterile technique patient was prepped and draped in the usu al sterile fashion. After 1% lidocaine, utilizing real-time ultrasound guidance, 7cm Kopans needle ad vanced into the hypoechoic 5:00 LEFT breast lesion. Next, additional 7 cm Kopans needle was advanced into a contiguous ductal branching arm of the 5:00 l esion No immediate complications. US/[place] [id number] IMPRESSION: 1. Uncomplicated ultrasound-guided LEFT breast needle localization. 2. Ultrasound of the surgical specimen demonstrates gross total resection with intact localization wires. BI-RADS: 6-Known Biopsy-Proven Malignancy FOLLOW UP: See Report
[2022-06-12] MEDS: sodium chloride 0.9% 1,000 ML 30 ML IV (08:54)
--- NOTE | 2022-06-12 09:42 | PC.NURSE ---
injected patient with 1.05 mCi Tc99m Tilmanocept Lymphoseek at the 2:00 position of the left breast at 0930 by Quita DAVIDMT. Minimal pain and no complaints post injection.
--- NOTE | 2022-06-12 09:43 | ECG_ITS ---
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 Measurements Intervals [place] Rate: 71 P: 73 UT: 179 QRS: 4 QRSD: 77 T: 83 QT: 390 QTc: 426 Interpretive Statements SINUS RHYTHM NONSPECIFIC T-WAVE ABNORMALITY Compared to ECG 08/15/2020 11:15:27 No significant changes Electronically Signed On 06-12-2022 14:48:23 BILINGUAL STUDENT TUTOR by Tod Logan M.D. [id number]
--- NOTE | 2022-06-12 10:05 | W.PM.OPSUD ---
Surgery/Procedure H&P Update DATE OF PROCEDURE: June 12, 2022 DATE H&P PERFORMED: 05/13/22 PREOP DIAGNOSIS: Left breast cancer PLANNED PROCEDURE: Operation Date: 06/12/22 10:45 Proposed Procedures p left breast lumpectomy with needle insertion and [place] [id number], [id number], [id number], 96087,C50.512(Left) - DO edith Diamond Sentinal Lymph Node Biopsy(Left) - Sulaiman Disla DO
[2022-06-12] MEDS: ceFAZolin 2,000 MG in sodium chloride 0.9% (plus) 50 ML 100 MG IV (10:33)
[2022-06-12] MEDS: isosulfan blue 10 mg/mL SDV 5mL SUBCUT (11:00)
--- NOTE | 2022-06-12 11:56 | P.OP_ITS ---
Operative Report Date of procedure: June 12, 2022 Pre-op diagnosis: Preop Diagnosis Left breast cancer Post-op diagnosis: same Procedure done: Needle insertion with radiologic correlation left breast lumpectomy with sentinel lymph node biopsy Implants: None Specimens removed/disposition: Left axillary sentinel lymph nodes Additional axillary tissue Left breast lumpectomy Additional anterior margin Surgeon: Dr. Sulaiman Disla, DO Anesthesia: General Estimated blood loss (mL): 20 Complications: None apparent Brief History: This a very pleasant 81-year-old female with biopsy-proven invasive ductal carcinoma of the left breast. Lumpectomy and sentinel lymph node biopsy was indicated. The risks and benefits were explained and documented. Procedure: After radiotracer was injected and wire localization was performed by radiology, the patient was brought back into the operating room. She was placed on the OR table in the supine position. The left breast and axilla were inspected prepped and draped in usual sterile fashion. Lymphazurin blue was injected underneath the left nipple and massaged for 5 minutes. A timeout was performed. All present were in agreement. A 4 cm incision was made in the left axilla. Dissection was carried down with electrocautery. The [place] counter was used to locate a sentinel lymph node. The nipple measured 397 on the [place] counter and at least 3 sentinel lymph nodes were identified measuring between 44 and 141 on the [place] counter. None of the lymph nodes were blue or large. specimens were passed off to go to pathology along with the surrounding fat and some additional axillary tissue. Hemostasis was noted. Next, after localization a 7 cm incision was made over the mass, in the 5 to 6 o'clock position. There was a lateral and a medial wire. The medial wire ended in the skin. Electrocautery was used to carve out a lumpectomy specimen. The entire lateral needle was i ncluded. Dissection was carried down to the pectoralis major muscle. Specimen was taken out en bloc. Short stitch marked superior. Long stitch marked lateral and double stitch marked anterior. An ellipse of skin was taken for an additional anterior margin and sent off with the specimen. Hemostasis was achieved with electrocautery. Specimen was sent to radiology who said the clip and wire were surrounded by adequate tissue margins. The dermis was approximated with 3-0 Vicryl. The skin was closed with 4-0 Monocryl in a subcuticular and running fashion. Dermabond was applied. Patient tolerated the procedure well.
[2022-06-12] MEDS: HYDROmorphone 1 mg/mL INJ 1 mL 0.5 MG IVP (12:59)
[2022-06-12] MEDS: ondansetron 2 mg/ML SDV 2 mL 4 MG IVP ×2 (12:59→13:48)
[2022-06-12 13:43] LABS: ABG PCO2 45.1 mmHg (35-45); ABG PH Result 7.35 (7.35-7.45); Arterial Blood Gas Hematocrit 37.9 % (37-47); Base Excess ABG -1.3 mmol/L (-2.0-2.0); Blood Gas Allen Test Pos; Blood Gas Operator Identificat MONRO; Blood Gas Sample Site Radial, left; Blood Gas Sample Type Arterial; HCO3 ABG 24.6 mmol/L (22-26); Oxygen Device ROOM AIR
[2022-06-12] MEDS: HYDROcodone-acetaminophen 7.5-325 mg Tablet 1 TAB PO (13:49)
--- NOTE | 2022-06-12 13:56 | P.ANESASSM_ITS ---
Pre-Anesthetic Assessment Height/Weight: Height 1.57 m Weight 40.823 kg Temp Pulse Resp BP Pulse Ox O2 Del Method O2 Flow Rate 97.4 F L 85 16 178/75 97 6 06/12/22 12:45 06/12/22 13:20 06/12/22 13:20 06/12/22 13:20 06/12/22 13:20 06/12/22 13:20 06/12/22 12:24 Preop Diagnosis: Left breast cancer Operation Date: 06/12/22 10:45 Proposed Procedures p left breast lumpectomy with needle insertion and radiologic [place] [id number], [address]5637, 85521, 75446,C50.512(Left) - DO edith Diamond Sentinal Lymph Node Biopsy(Left) - Sulaiman Disla DO Familial anesthetic complications: none Was Beta Adri taken within 24 hours: N/A Was Clonidine taken within 24 hours: N/A Last intake: Intake Last Liquid Date 06/11/22 Last Liquid Time 21:00 Last Solid Date 06/11/22 Last Solid Time 18:00 Social No alcohol Exam alert, oriented x 3, clear to auscultation bilaterally and regular rate & rhythm Airway Submandibular: within normal limits Cervical ROM: within normal limits Mallampati: Class II CV/HEM Hypertension Metabolic Hyperlipidemia Anesthetic Plan ASA status: 2 Anesthesia: General Medications/Allergies Home Medications Medication Instructions Recorded Confirmed Last Taken Type acetaminophen 500 mg tablet 1,000 mg PO PRN 04/20/20 06/10/22 06/11/22 History (Tylenol Extra Strength) pravastatin 40 mg tablet 40 mg PO DAILY@04/20/20 06/10/22 06/11/22 History docusate sodium 100 mg capsule 100 mg PO DAILY PRN Constipation 07/05/2003/26/22 History (Colace) (2nd) lisinopril 5 mg tablet 7.5 mg PO BID@06/24/21 06/10/22 06/11/22 History buspirone 5 mg tablet 5 mg PO BID PRN anxiety #60 tabs 01/30/22 06/10/22 Rx tramadol 50 mg tablet 25 mg PO DAILY #45 tabs 03/14/22 06/10/22 06/11/22 Rx latanoprost 0.005 % eye drops 1 drp ophthalmic (eye) DAILY 03/19/22 06/10/22 06/11/22 History gabapentin 100 mg capsule See Rx Instructions .Route 06/09/22 06/10/22 06/11/22 Rx .COMPLEX #90 caps hydrocodone 7.5 mg-acetaminophen 1 tab PO Q6H PRN pain #20 tabs 06/12/22 Unknown Rx 325 mg tablet Allergies Allergy/AdvReac Type Severity Reaction Status Date / Time Sulfa (Sulfonamide Allergy Intermediate ALGY-Hives Verified 06/12/22 08:29 Antibiotics) Current Medications Generic Name Dose Route Start Last Admin Trade Name Freq PRN Reason Stop Dose Admin Hydromorphone HCl 0.5 mg 06/12/22 08:24 06/12/22 12:59 Hydromorphone 1 Mg/Ml Inj 1 Ml IVP 0.5 mg ONCE PRN Administration Phase II postop pain Sodium Chloride 1,000 mls @ 30 mls/hr 06/12/22 08:30 06/12/22 08:54 Sodium Chloride 0.9% IV 06/13/22 08:29 30 mls/hr .Q24H THOMAS Administration Ondansetron HCl 4 mg 06/12/22 10:34 06/12/22 13:48 Ondansetron 2 Mg/Ml Sdv 2 Ml IVP 4 mg ONCE PRN Administration Nausea/Vomiting [facility] Anesthesia Medical History Anxiety and depression 2020---is on BuSpar as needed for this Cystitis Diverticulosis GERD (gastroesophageal reflux disease) Glaucoma Had eye surgery 2018 to treat glaucoma History of cancer of right breast (10/2014) Hyperlipidemia Since her 60s and is currently on medication managed by her primary care provider. Hypertension Diagnosed in her 50s controlled with medication managed by her PMD and cardiology-Dr. Logan Vulvodynia Surgical History S/P appendectomy (~1968) Midline upper abdominal incision--cholecystectomy done at the same time S/P breast biopsy, right X 2 -----> 1995 and 2001 S/P BSO (bilateral salpingo-oophorectomy) (06/19/15) Laparoscopic. Performed by Dr. Patricio at [facility] in [place], [place]. S/P cholecystectomy (~1969) Performed in [place], [place]. S/P eye surgery (~2019) Cataracts and glaucoma. Performed by Dr. Jenkins at [facility]. S/P laparoscopic assisted vaginal hysterectomy (LAVH) (07/10/20) LAVH, laparoscopic USLS with enterocele repair, cystoscopy. Dx: Incomplete uterovaginal prolapse. Performed by Dr. Patricio at [facility] in [place], [place]. S/P lumpectomy, right breast (11/30/14) Right breast lumpectomy with axillary sentinel lymph node biopsy Family History Mother Heart disease Grandfather Diabetes Paternal Grandmother Breast cancer Maternal. MGM had a breast removed, unsure if it was breast cancer as she was a young child. Denies family history of Colon cancer Ovarian cancer Hyperlipidemia Hypertension Uterine cancer Thyroid condition Stroke Social History Smoking and tobacco status: never smoked Alcohol intake: never Data Anesthesia ABG 06/12/22 13:31 Specimen Type Arterial Sample Site Radial, left ABG pH 7.35 ABG pCO2 45.1 H ABG pO2 79.0 L ABG HCO3 24.6 ABG Base Excess -1.3 O2 Delivery Device Room air FiO2 21.0 Cardiac Studies: No Data to Display
--- NOTE | 2022-06-12 13:58 | ANE.PACU2 ---
Inpatient post-anesthesia follow up: Airway intact: Yes Vital signs: Temperature 97.4 F Pulse Rate 85 Respiratory Rate 16 Blood Pressure 178/75 Pulse Oximetry 97 Oxygen Delivery Me thod Room Air Oxygen Flow Rate 6 Fraction of Inspir ed Oxygen Hydration adequate: Yes Nausea and vomiting: No Pain level: 1 Mental status: Baseline Additional Comments: Patient with tape excoriations around eyes, and fat lip from tape--oddly enough skin is visibly blue from lymphazurin blue.
== END 2022-06-12 14:30 | disposition home or self-care (01) ==
PROVIDERS: PCP Family Medicine; Visit Provider Surgery
PROC: (CPT 19120; principal; 2022-06-12 10:45)
PROC: (CPT 19301; 2022-06-12 10:45)
DX: C50.912 Malignant neoplasm of unspecified site of left female breast (principal); F41.9 Anxiety disorder, unspecified; F32.A Depression, unspecified; K21.9 Gastro-esophageal reflux disease without esophagitis; E78.5 Hyperlipidemia, unspecified; I10 Essential (primary) hypertension
CPT/HCPCS: 19301; 38500; 19285; 36600; 38792; 82803; 88307; 93005; A9520; A9541; C1889; J0690; J1170; J2405; J3010; J7030; Q9968

== ENCOUNTER → 2022-06-27 09:07 | Outpatient (BNVA) | payer MEDICARE, SELFPAY | PROVIDERS: PCP Family Medicine; Visit Provider Surgery | DX: Z98.890 Other specified postprocedural states (principal); C50.512 Malignant neoplasm of lower-outer quadrant of left female breast | CPT/HCPCS: 99024 ==

== ENCOUNTER 2022-06-30 12:04 | Day surgery (SDC) | payer MEDICARE, SELFPAY ==
[2022-06-27 16:45] VITALS: BMI 16.9
[2022-06-30] VITALS (15 sets, daily range): BP systolic 153–193; BP diastolic 66–90; PULSE 70–85; RESP 15–18; TEMP 36.2–36.7; O2SAT 95–100
--- NOTE | 2022-06-30 13:37 | P.ANESASSM_ITS ---
Pre-Anesthetic Assessment Height/Weight: Height 1.57 m Weight 42.184 kg Temp Pulse Resp BP Pulse Ox O2 Del Method 98.1 F 76 18 193/78 99 06/30/22 12:58 06/30/22 12:58 06/30/22 12:58 06/30/22 12:58 06/30/22 12:58 06/30/22 12:59 Preop Diagnosis: Left breast cancer Operation Date: 06/30/22 13:45 Proposed Procedures p reexcision left breast lumpectomy ,evacuation of left axillary hematoma 12183,C50.512(Left) - Sulaiman Disla DO Familial anesthetic complications: Tape used for eyes during last surgery produced a fair amount of swelling/erythema after removal Was Beta Adri taken within 24 hours: N/A Was Clonidine taken within 24 hours: N/A Last intake: Intake Last Liquid Date 06/29/22 Last Liquid Time 20:00 Last Solid Date 06/29/22 Last Solid Time 18:00 Social No alcohol and No tobacco Exam alert, oriented x 3, clear to auscultation bilaterally and regular rate & rhythm Airway Mallampati: Class II Dentition: full CV/HEM Hypertension Metabolic Hyperlipidemia Anesthetic Plan ASA status: 3 Anesthesia: General Risk of > 500 ml blood loss (7ml/kg in children): No Medications/Allergies Home Medications Medication Instructions Recorded Confirmed Last Taken Type acetaminophen 500 mg tablet 1,000 mg PO PRN 04/20/20 06/30/22 06/11/22 History (Tylenol Extra Strength) pravastatin 40 mg tablet 40 mg PO DAILY@04/20/20 06/30/22 06/29/22 History docusate sodium 100 mg capsule 100 mg PO DAILY PRN Constipation 07/05/20 06/30/22 06/27/22 History (Colace) (2nd) lisinopril 5 mg tablet 7.5 mg PO BID@06/24/21 06/30/22 06/29/22 History buspirone 5 mg tablet 5 mg PO BID PRN anxiety #60 tabs 01/30/22 06/30/22 06/29/22 Rx tramadol 50 mg tablet 25 mg PO DAILY #45 tabs 03/14/22 06/30/22 06/29/22 Rx latanoprost 0.005 % eye drops 1 drp ophthalmic (eye) DAILY 03/19/22 06/30/22 06/29/22 18:00 History gabapentin 100 mg capsule See Rx Instructions .Route 06/09/22 06/30/22 06/29/22 Rx .COMPLEX #90 caps hydrocodone 7.5 mg-acetaminophen 1 tab PO Q6H PRN pain #20 tabs 06/12/22 06/30/22 06/29/22 08:00 Rx 325 mg tablet Allergies Allergy/AdvReac Type Severity Reaction Status Date / Time Sulfa (Sulfonamide Allergy Intermediate ALGY-Hives Verified 06/27/22 09:17 Antibiotics) [facility] Anesthesia Medical History Anxiety and depression 2020---is on BuSpar as needed for this Cystitis Diverticulosis GERD (gastroesophageal reflux disease) Glaucoma Had eye surgery 2018 to treat glaucoma History of cancer of right breast (10/2014) Hyperlipidemia Since her 60s and is currently on medication managed by her primary care provider. Hypertension Diagnosed in her 50s controlled with medication managed by her PMD and cardiology-Dr. Logan Vulvodynia Surgical History S/P appendectomy (~1968) Midline upper abdominal incision--cholecystectomy done at the same time S/P breast biopsy, right X 2 -----> 1995 and 2001 S/P BSO (bilateral salpingo-oophorectomy) (06/19/15) Laparoscopic. Performed by Dr. Patricio at [facility] in [place], [place]. S/P cholecystectomy (~1968) Performed in [place], [place]. S/P eye surgery (~2018) Cataracts and glaucoma. Performed by Dr. Jenkins at [facility]. S/P laparoscopic assisted vaginal hysterectomy (LAVH) (07/10/20) LAVH, laparoscopic USLS with enterocele repair, cystoscopy. Dx: Incomplete uterovaginal prolapse. Performed by Dr. Patricio at [facility] in [place], [place]. S/P lumpectomy, right breast (11/30/14) Right breast lumpectomy with axillary sentinel lymph node biopsy Family History Mother Heart disease Grandfather Diabetes Paternal Grandmother Breast cancer Maternal. MGM had a breast removed, unsure if it was breast cancer as she was a young child. Denies family history of Colon cancer Ovarian cancer Hyperlipidemia Hypertension Uterine cancer Thyroid condition Stroke Social History Smoking and tobacco status: never smoked Alcohol intake: never Data Anesthesia Cardiac Studies: No Data to Display
--- NOTE | 2022-06-30 13:47 | W.PM.OPSUD ---
Surgery/Procedure H&P Update DATE OF PROCEDURE: June 30, 2022 DATE H&P PERFORMED: 06/27/22 PREOP DIAGNOSIS: Left breast cancer PLANNED PROCEDURE: Operation Date: 06/30/22 13:45 Proposed Procedures p reexcision left breast lumpectomy ,evacuation of left axillary hematoma 94485,C50.512(Left) - Sulaiman Disla DO
--- NOTE | 2022-06-30 13:48 | W.PM.OPSUD ---
Surgery/Procedure H&P Update DATE OF PROCEDURE: June 30, 2022 DATE H&P PERFORMED: 06/27/22 PREOP DIAGNOSIS: Left breast cancer PLANNED PROCEDURE: Operation Date: 06/30/22 13:45 Proposed Procedures p reexcision left breast lumpectomy ,evacuation of left axillary hematoma 63205,C50.512(Left) - Sulaiman Disla DO
[2022-06-30 13:56] LABS: Basophils % 0.5 %; Eosinophils # 0.1 10^3/uL (0.0-0.8); Eosinophils % 0.6 %; Hematocrit 35.4 % (37.0-47.0); Hemoglobin 10.8 g/dL (11.5-15.3); Lymphocytes # 1.4 10^3/uL (0.8-4.8); Lymphocytes % 17.9 %; Mean Corpuscular HGB Conc 30.5 g/dL (30.0-36.0); Mean Corpuscular Volume 88.5 fl (81-99); Mean Platelet Volume 9.3 fL (7.4-10.4); Monocytes # 0.6 10^3/uL (0.2-0.9); Monocytes % 8.2 %; Neutrophils # 5.63 10^3/uL (1.8-7.7); Neutrophils % 72.3 %; Nucleated Red Blood Cells % 0 %; Platelet Count 368 10^3/cmm (130-400); Red Cell Distribution Width 14.6 % (12.1-15.1); White Blood Count 7.8 10^3/uL (4.0-10.0)
[2022-06-30] MEDS: sodium chloride 0.9% 1,000 ML 30 ML IV (13:57)
[2022-06-30 14:11] LABS: Anion Gap 12.7 (5-19); Blood Urea Nitrogen 12 mg/dL (8-23); Calcium 9.4 mg/dL (8.5-10.5); Carbon Dioxide 28 mmol/L (22-29); Chloride 98 mmol/L (98-107); Glucose 110 mg/dL (65-115); Osmolality Calculated 280 mOsm/kg (285-295); Potassium 3.7 mmol/L (3.5-5.1); Sodium 135 mmol/L (136-145)
[2022-06-30] MEDS: ceFAZolin 2,000 MG in sodium chloride 0.9% (plus) 50 ML 100 MG IV (17:04)
--- NOTE | 2022-06-30 17:43 | PM.OP ---
Operative Report Date of procedure: June 30, 2022 Pre-op diagnosis: Preop Diagnosis Left breast cancer with positive anterior margins, left axillary hematoma Post-op diagnosis: same Procedure done: Left breast lumpectomy with reexcision of anterior margin and evacuation of left axillary hematoma Implants: Surgicel in the left axilla and Aidan in the lumpectomy site Specimens removed/disposition: Lumpectomy additional anterior margin Surgeon: Dr. Sulaiman Disla, DO Anesthesia: General Estimated blood loss (mL): 5 Complications: None apparent Brief History: This very pleasant 81-year-old female who recently underwent a lumpectomy of her left breast. At that time an additional anterior margin was taken out but that margin still was found to have malignant cells less than 1 mm from the inked margin. Reexcision of the anterior margin was warranted. She also had a hematoma of her left axilla. Evacuation of the hematoma was warranted. The risks and benefits were explained and documented. Procedure: Patient was wheeled in operative room placed on the OR table in the supine position. General endotracheal intubation was achieved by the department of anesthesia. The left breast was inspected prepped and draped in usual sterile fashion. A timeout was performed. All present were in agreement. A 10 blade scalpel was used to reopen the incision sites on the left breast and left axilla. Hematomas were evacuated. The rest of the breast tissue anterior to the previous lumpectomy site was removed with electrocautery. This was a shave about 1 cm in width. The specimen was taken out and anterior was marked with a double stitch. Superior was marked with a short stitch and lateral was marked with a long stitch. Specimen was passed off. Hemostasis was controlled with electrocautery. The cavities were irrigated and suctioned. Surgicel was placed in the left axilla. Aidan was placed in the lumpectomy site. Dermis was approximated with 3-0 Vicryl sutures. Skin was closed with 4-0 running Monocryl. Skin glue was applied. Patient tolerated procedure well.
[2022-06-30] MEDS: fentaNYL 50 mcg/mL INJ 2mL IVP (18:18)
[2022-06-30] MEDS: HYDROmorphone 1 mg/mL INJ 1 mL 0.5 MG IVP (18:33)
[2022-06-30] MEDS: HYDROcodone-acetaminophen 7.5-325 mg Tablet 1 TAB PO (19:19)
--- NOTE | 2022-06-30 19:32 | ANE.PACU2 ---
Inpatient post-anesthesia follow up: Airway intact: Yes Vital signs: Temperature 97.5 F Pulse Rate 74 Respiratory Rate 16 Blood Pressure 171/88 Pulse Oximetry 97 Oxygen Delivery Me thod Room Air Oxygen Flow Rate 6 Fraction of Inspir ed Oxygen Hydration adequate: Yes Nausea and vomiting: No Pain level: 1 Mental status: Baseline
== END 2022-06-30 19:35 | disposition home or self-care (01) ==
PROVIDERS: Anesthesiology; PCP Family Medicine; Visit Provider Surgery
PROC: (CPT 19120; principal; 2022-06-30 13:35)
PROC: (CPT 10140; 2022-06-30 13:35)
DX: C50.512 Malignant neoplasm of lower-outer quadrant of left female breast (principal); M79.81 Nontraumatic hematoma of soft tissue; I10 Essential (primary) hypertension; E78.5 Hyperlipidemia, unspecified; K21.9 Gastro-esophageal reflux disease without esophagitis
CPT/HCPCS: 10140; 19301; 36415; 80048; 85025; 88307; J0690; J1170; J2704; J3010; J3490; J7030

== ENCOUNTER → 2022-07-15 13:45 | Outpatient (BNVA) | payer MEDICARE, SELFPAY | PROVIDERS: PCP Family Medicine; Visit Provider Surgery | DX: C50.512 Malignant neoplasm of lower-outer quadrant of left female breast (principal); Z98.890 Other specified postprocedural states; Z17.0 Estrogen receptor positive status [ER+] | CPT/HCPCS: 99024; 99214; 99215 ==

== ENCOUNTER 2022-08-26 09:33 | Oncology outpatient (recurring) (ONCR) | payer MEDICARE, SELFPAY | END 2022-09-21 23:59 | disposition home or self-care (01) | PROVIDERS: PCP Family Medicine; Visit Provider Internal Medicine Medical Oncology | DX: C50.812 Malignant neoplasm of overlapping sites of left female breast (principal); Z17.0 Estrogen receptor positive status [ER+]; Z78.0 Asymptomatic menopausal state; Z79.818 Long term (current) use of other agents affecting estrogen receptors and estrogen levels | CPT/HCPCS: 99215 ==

== ENCOUNTER 2022-08-29 14:13 | Outpatient (CLI) | payer MEDICARE, SELFPAY ==
--- NOTE | 2022-08-29 14:30 | XR_ITS ---
WS: [id number] DEXA (DUAL ENERGY X-RAY ABSORPTIOMETRY) Bone mineral density was performed using a [employer] machine. HISTORY: Breast cancer, asymptomatic menopause COMPARISON: 02/07/2019 Lumbar spine BMD (L1-L4): 1.219 g/cm2 T score: 0.3 Z score: 3.0 Total hip BMD: Left: 0.771 g/cm2. T score: -1.9 Z score: 0.8 Right: 0.805 g/cm2. T score: -1.6 Z score: 1.1 10 year probability of a major osteoporotic fracture is 13.5%. Compared to the prior study from 02/07/2019. Lumbar spine bone mineral density has decreased by 1.8%. Bilateral hips bone mineral density has decreased by 12.7%. XR/XR DEXA axial skeleton* 25190 IMPRESSION: OSTEOPENIA based upon the WHO classification for females. Significant decrease in BMD within the hips.
== END 2022-08-29 14:14 | disposition home or self-care (01) ==
LOC: RAD 14:14
PROVIDERS: PCP Family Medicine; Visit Provider Internal Medicine Medical Oncology
DX: Z78.0 Asymptomatic menopausal state (principal); M85.80 Other specified disorders of bone density and structure, unspecified site
CPT/HCPCS: 77080

== ENCOUNTER 2022-09-03 08:56 | Outpatient (CLI) | payer MEDICARE, SELFPAY ==
[2022-09-03 09:12] LABS: Basophils % 0.4 %; Eosinophils # 0.2 10^3/uL (0.0-0.8); Eosinophils % 1.8 %; Lymphocytes # 2.9 10^3/uL (0.8-4.8); Lymphocytes % 29.5 %; Mean Corpuscular Hemoglobin 27.3 pg (28.0-34.0); Mean Corpuscular Volume 88.2 fl (81-99); Mean Platelet Volume 9.4 fL (7.4-10.4); Monocytes # 0.8 10^3/uL (0.2-0.9); Monocytes % 8.1 %; Nucleated Red Blood Cells % 0 %; Platelet Count 323 10^3/cmm (130-400); Red Blood Count 4.76 10^6/uL (4.1-5.3); Red Cell Distribution Width 13.4 % (12.1-15.1); White Blood Count 9.7 10^3/uL (4.0-10.0)
[2022-09-03 09:33] LABS: Alanine Aminotransferase 7 U/L (0-33); Albumin Level 4.5 g/dL (3.5-5.2); Alkaline Phosphatase 84 U/L (35-105); Anion Gap 12.9 (5-19); Aspartate Amino Transferase 18 U/L (0-32); Blood Urea Nitrogen 13 mg/dL (8-23); Calcium 9.5 mg/dL (8.5-10.5); Carbon Dioxide 30 mmol/L (22-29); Chloride 102 mmol/L (98-107); Globulin 2.8 g/dL (1.3-4.6); Glucose 115 mg/dL (65-115); Osmolality Calculated 293 mOsm/kg (285-295); Potassium 3.9 mmol/L (3.5-5.1); Sodium 141 mmol/L (136-145); Total Bilirubin 0.3 mg/dL (0.15-1.2); Total Protein 7.3 g/dL (6.6-8.7)
[2022-09-03 09:49] LABS: 25 Hydroxy Vitamin D 31 ng/mL (30-100)
== END 2022-09-03 08:57 | disposition home or self-care (01) ==
LOC: LAB 08:59
PROVIDERS: PCP Family Medicine; Visit Provider Internal Medicine Medical Oncology
DX: C50.411 Malignant neoplasm of upper-outer quadrant of right female breast (principal); C50.512 Malignant neoplasm of lower-outer quadrant of left female breast; M85.80 Other specified disorders of bone density and structure, unspecified site
CPT/HCPCS: 36415; 80053; 82306; 85025

== ENCOUNTER 2022-12-04 11:15 | Oncology outpatient (recurring) (ONCR) | payer MEDICARE, SELFPAY ==
[2022-12-04 11:22] VITALS: BP 172/89; PULSE 91; RESP 18; TEMP 36.9; O2SAT 97
[2022-12-04 11:32] LABS: Basophils % 0.3 %; Eosinophils % 0.3 %; Hematocrit 41.9 % (37.0-47.0); Hemoglobin 13.1 g/dL (11.5-15.3); Lymphocytes # 1.9 10^3/uL (0.8-4.8); Mean Corpuscular HGB Conc 31.3 g/dL (30.0-36.0); Mean Corpuscular Hemoglobin 27.2 pg (28.0-34.0); Mean Corpuscular Volume 87.1 fl (81-99); Mean Platelet Volume 9.4 fL (7.4-10.4); Monocytes # 0.8 10^3/uL (0.2-0.9); Monocytes % 7.8 %; Neutrophils # 7.75 10^3/uL (1.8-7.7); Neutrophils % 73.3 %; Nucleated Red Blood Cells % 0 %; Platelet Count 373 10^3/cmm (130-400); Red Blood Count 4.81 10^6/uL (4.1-5.3); Red Cell Distribution Width 13.2 % (12.1-15.1); White Blood Count 10.6 10^3/uL (4.0-10.0)
[2022-12-04 11:53] LABS: Alanine Aminotransferase < 5 U/L (0-33); Albumin Level 4.4 g/dL (3.5-5.2); Alkaline Phosphatase 69 U/L (35-105); Blood Urea Nitrogen 9 mg/dL (8-23); Calcium 10.2 mg/dL (8.5-10.5); Carbon Dioxide 28 mmol/L (22-29); Chloride 97 mmol/L (98-107); Globulin 3.2 g/dL (1.3-4.6); Glucose 145 mg/dL (65-115); Osmolality Calculated 281 mOsm/kg (285-295); Sodium 135 mmol/L (136-145); Total Bilirubin 0.4 mg/dL (0.15-1.2); Total Protein 7.6 g/dL (6.6-8.7)
[2022-12-04 11:54] LABS: Anion Gap 14.1 (5-19); Aspartate Amino Transferase 19 U/L (0-32); Potassium 4.1 mmol/L (3.5-5.1)
== END 2022-12-22 23:59 | disposition home or self-care (01) ==
PROVIDERS: PCP Family Medicine; Visit Provider Internal Medicine Medical Oncology
DX: C50.812 Malignant neoplasm of overlapping sites of left female breast (principal); Z17.0 Estrogen receptor positive status [ER+]; Z78.0 Asymptomatic menopausal state; Z79.818 Long term (current) use of other agents affecting estrogen receptors and estrogen levels
CPT/HCPCS: 36415; 80053; 85025; 99214

== ENCOUNTER 2023-01-08 08:12 | Emergency (ER) | payer MEDICARE, SELFPAY ==
[2023-01-08] VITALS (7 sets, daily range): BP systolic 161–184; BP diastolic 70–84; PULSE 68–72; RESP 16–27; TEMP 36.7; O2SAT 98–99
--- NOTE | 2023-01-08 08:24 | CT_ITS ---
WS: [id number] CT ABDOMEN AND PELVIS WITH CONTRAST HISTORY: abd pain, severe pain left side. TECHNIQUE: Imaging performed of the abdomen and pelvis with IV contrast. Single phase imaging of the abdomen. Coronal and sagittal reformats are submitted. All CT scans at [facility] use at [address] one of these dose optimization techniques: automated exposure control; mA and/or kV adjustment per patient size (includes targeted exams where dose is matched to clinical indication); or iterative re construction. IV CONTRAST: Omnipaque 350; 100 mL IV. Oral contrast: No DLP: 545.25 mGy.cm COMPARISON: 08/15/2020 Significant motion artifact despite repeated attempts. Lower thorax: Motion artifact. Hyperexpansion from emphysema. Heart is normal size. Small hiatal grupo ia. Liver/biliary system: Normal size with no intrahepatic dilatation. Gallbladder: Prior cholecystectomy. Common bile duct is dilated which may be physiologic and related to the prior cholecystectomy. Similar to the prior study. Pancreas: Normal size pancreas and pancreatic duct. No adjacent inflammation. Spleen: Spleen is normal size. Peripheral calcifications. Stable. Adrenal glands: Mild hyperplasia of the left adrenal gland. No interval change. Right kidney: Normal. Left kidney: Normal. Aorta: Moderate atherosclerosis with no aneurysm. Lymphadenopathy: None. Free fluid: None. GI tract: Normally distended stomach. No small bowel obstruction. There is marked diffuse constipatio n. The visualized appendix is normal. Numerous diverticula with circumferential wall thickening of th e sigmoid colon. The sigmoid lumen becomes narrowed with increasing constipation. No obstruction. No ischemia is evident. Abdominal wall: Unremarkable abdominal wall. No hernia. Pelvis: No free fluid or adenopathy within the pelvis. Bones: Osteopenia. Mild degenerative changes in the lumbar spine. No acute fracture. No bone destruct ion. IMPRESSION: 1. Marked obstipation and constipation greatest involving the sigmoid. 2. 2. Marked circumferential wall thickening with numerous diverticula in the sigmoid region. No lefty dence for acute diverticulitis at this time. Lumen becomes narrowed with increasing fecal material. C olonoscopy recommended for further evaluation. 3. Normal appendix. 4. Prior cholecystectomy. 5. No ascites or adenopathy.
--- NOTE | 2023-01-08 08:26 | ED_ITS ---
HPI - Nausea/Vomiting/Diarrhea General: Chief complaint: Nausea/Vomiting/Diarrhea Stated complaint: n/v, UPPER ABD PAIN Time Seen by Provider: 01/08/23 08:13 Source: patient Mode of arrival: ambulatory History of Present Illness: 82-year-old female with a history of breast cancer states that over the last 1 to 2 months she has had decreased appetite has been having some diffuse abdominal pain along with vomiting. States she has lost weight as she has not been eating or drinking much. She denies any fevers states her pain is diffuse currently 2 out of 10 denies any worsening improving factors. Associated nausea: Yes Associated symtoms: Reports nausea; Denies chest pain, dysuria or headache(s) Review of Systems Const: Denies: fever(s), chills, body aches or change in appetite Eyes: Denies: blurry vision or eye discomfort ENMT: Denies: throat pain or dental pain Card: Denies: chest pain Resp: Denies: dyspnea GI: Reports: nausea and vomiting : Denies: dysuria Musc: Denies: neck pain or back pain Skin/Breast: Denies: rash Neuro: Denies: headache(s) PFS ED PFSH: Medical History Anxiety and depression 2020---is on BuSpar as needed for this Cystitis Diverticulosis GERD (gastroesophageal reflux disease) Glaucoma Had eye surgery 2018 to treat glaucoma History of cancer of right breast (10/2014) Hyperlipidemia Since her 60s and is currently on medication managed by her primary care provider. Hypertension Diagnosed in her 50s controlled with medication managed by her PMD and cardiology-Dr. Logan Vulvodynia Surgical History History of breast surgery Lumpectomy left breast x2 S/P appendectomy (~1968) Midline upper abdominal incision--cholecystectomy done at the same time S/P breast biopsy, right X 2 -----> 1995 and 2001 S/P BSO (bilateral salpingo-oophorectomy) (06/19/15) Laparoscopic. Performed by Dr. Patricio at [facility] in [place], [place]. S/P cholecystectomy (~1968) Performed in [place], [place]. S/P eye surgery (~2019) Cataracts and glaucoma. Performed by Dr. Jenkins at [facility]. S/P laparoscopic assisted vaginal hysterectomy (LAVH) (07/10/20) LAVH, laparoscopic USLS with enterocele repair, cystoscopy. Dx: Incomplete u terovaginal prolapse. Performed by Dr. Patricio at [facility] in [place], [place]. S/P lumpectomy, right breast (11/30/14) Right breast lumpectomy with axillary sentinel lymph node biopsy Family History Mother Heart disease Grandfather Diabetes Paternal Grandmother Breast cancer Maternal. MGM had a breast removed, unsure if it was breast cancer as she was a young child. Denies family history of Colon cancer Ovarian cancer Hyperlipidemia Hypertension Uterine cancer Thyroid condition Stroke Social History Smoking and tobacco status: never smoked Alcohol intake: never Substance/Drug Use: never Physical Exam Const: COMMON NORMALS: no acute distress, patient oriented x3 and healthy appearing HENMT: COMMON NORMALS: normocephalic and atraumatic HEAD & SCALP: normocephalic and atraumatic Eye: COMMON NORMALS: Equal, round and reactive pupils present and EOMs intact bilaterally PUPIL: Yes Equal, round and reactive pupils present Neck/C-Spine: COMMON NORMALS: full ROM and supple Chest: COMMONS NORMALS: normal inspection of the chest and normal palpation of entire chest wall Resp: COMMON NORMALS: normal respiratory effort, No retractions, No use of accessory muscles and clear to auscultation bilaterally AUSCULTATION: clear to auscultation bilaterally Cardio: COMMON NORMALS: regular rate, regular rhythm and No murmurs present (Cardio) RATE: regular rate RHYTHM: regular rhythm GI: COMMON NORMALS: Normal to inspection, nondistended, normoactive bowel sounds present, Soft to palpation, non-tender and no masses PALPATION: Yes Soft to palpation Extremity: COMMON NORMALS: normal to inspection and full ROM Neuro: COMMON NORMALS: patient oriented x3, moves all extremities and no focal motor deficits Psych: COMMON NORMALS: mental status grossly normal, Normal thought process present and cooperative THOUGHT PROCESS: Normal thought process present Skin: COMMON NORMALS: no rashes or lesions noted and no wounds GENERAL SKIN EXAM: no rashes or lesions noted Course Vital Signs: Vital signs: Vital Signs Temperature 98.1 F 01/08/23 08:20 Pulse Rate 68 01/08/23 10:30 Respiratory Rate 22 H 01/08/23 10:30 Blood Pressure 161/84 01/08/23 10:30 Pulse Oximetry 99 01/08/23 10:30 Oxygen Delivery Me thod Room Air 01/08/23 10:25 MDM - Nausea/Vomiting/Diarrhea Medical Decision Making Patient presents with nausea along with some abdominal pain she feels improved here CT shows constipation her blood work here is normal we will place her on MiraLAX she is stable for discharge she is to follow-up with her PCP and return if worsening she understands agrees to plan. Lab Data 01/08/23 09:05 01/08/23 09:05 Laboratory Results WBC 6.7 10^3/uL (4.0-10.0) 01/08/23 09:05 RBC 4.84 10^6/uL (4.1-5.3) 01/08/23 09:05 Hgb 13.7 g/dL (11.5-15.3) 01/08/23 09:05 Hct 41.6 % (37.0-47.0) 01/08/23 09:05 MCV 86.0 fl (81-99) 01/08/23 09:05 MCH 28.3 pg (28.0-34.0) 01/08/23 09:05 MCHC 32.9 g/dL (30.0-36.0) 01/08/23 09:05 RDW 12.7 % (12.1-15.1) 01/08/23 09:05 Plt Count 347 10^3/cmm (130-400) 01/08/23 09:05 MPV 9.0 fL (7.4-10.4) 01/08/23 09:05 Neut % (Auto) 68.9 % 01/08/23 09:05 Lymph % (Auto) 21.5 % 01/08/23 09:05 [place] % (Auto) 7.9 % 01/08/23 09:05 Eos % (Auto) 1.0 % 01/08/23 09:05 Baso % (Auto) 0.3 % 01/08/23 09:05 Neut # (Auto) 4.64 10^3/uL (1.8-7.7) 01/08/23 09:05 Lymph # (Auto) 1.5 10^3/uL (0.8-4.8) 01/08/23 09:05 [place] # (Auto) 0.5 10^3/uL (0.2-0.9) 01/08/23 09:05 Eos # (Auto) 0.1 10^3/uL (0.0-0.8) 01/08/23 09:05 Baso # (Auto) 0.0 10^3/uL (0.0-0.1) 01/08/23 09:05 Nucleated RBC % (auto) 0 % 01/08/23 09:05 Nucleated RBCs # 0.0 /100WBC 01/08/23 09:05 Sodium 139 mmol/L (136-145) 01/08/23 09:05 Potassium 4.1 mmol/L (3.5-5.1) 01/08/23 09:05 Chloride 100 mmol/L (98-107) 01/08/23 09:05 Carbon Dioxide 29 mmol/L (22-29) 01/08/23 09:05 Anion Gap 14.1 (5-19) 01/08/23 09:05 BUN 8 mg/dL (8-23) 01/08/23 09:05 Creatinine 0.6 mg/dL (0.5-0.9) 01/08/23 09:05 GFR Calculation Not Reportable 01/08/23 09:05 Glucose 115 mg/dL (65-115) 01/08/23 09:05 Calculated Osmolality 287 mOsm/kg (285-295) 01/08/23 09:05 Calcium 9.9 mg/dL (8.5-10.5) 01/08/23 09:05 Total Bilirubin 0.6 mg/dL (0.15-1.2) 01/08/23 09:05 AST 15 U/L (0-32) 01/08/23 09:05 ALT < 5 U/L (0-33) 01/08/23 09:05 Alkaline Phosphatase 69 U/L (35-105) 01/08/23 09:05 Total Protein 6.9 g/dL (6.6-8.7) 01/08/23 09:05 Albumin 4.4 g/dL (3.5-5.2) 01/08/23 09:05 Globulin 2.5 g/dL (1.3-4.6) 01/08/23 09:05 Lipase 45 U/L (13-60) 01/08/23 09:05 Urine Color Yellow (Yellow) 01/08/23 10:03 Urine Appearance Cloudy (CLEAR) A 01/08/23 10:03 Urine pH 8 (5-7) H 01/08/23 10:03 Ur Specific [place] 1.015 (1.005-1.030) 01/08/23 10:03 Urine Protein Neg (Negative) 01/08/23 10:03 Urine Glucose (UA) Norm (Normal) 01/08/23 10:03 Urine Ketones Negative (Negative) 01/08/23 10:03 Urine Blood Neg (Negative) 01/08/23 10:03 Urine Nitrate Negative (Negative) 01/08/23 10:03 Urine Bilirubin Neg (Negative) 01/08/23 10:03 Prot Sulfosalicylic Acd Negative (Negative) 01/08/23 10:03 Urine Urobilinogen Norm mg/dL (Negative) 01/08/23 10:03 Ur Leukocyte Esterase Negative (Negative) 01/08/23 10:03 Urine RBC Rare /hpf (0-2) 01/08/23 10:03 Urine WBC 0-4 /hpf (0-5) H 01/08/23 10:03 Ur Squamous Epith Cells 0-4 /hpf (0-5) H 01/08/23 10:03 Amorphous Sediment 3+ /hpf 01/08/23 10:03 Urine Bacteria 1+ /hpf (NONE) H 01/08/23 10:03 Urine Mucus 1+ /hpf 01/08/23 10:03 Discharge Plan Discharge Patient Disposition: Home Clinical Impression: Constipation Condition: Stable Prescriptions: New Miralax 17 gram powder in packet 17 g PO DAILY PRN (Reason: constipation) Qty: 14 0RF No Action DOK 100 mg capsule 100 mg PO BID PRN (Reason: Constipation) latanoprost 0.005 % drops 1 drp ophthalmic (eye) .QPM Rx Instructions: Left eye gabapentin 100 mg capsule 200 mg PO BID ondansetron 4 mg tablet,disintegrating 4 mg PO DAILY Qty: 30 1RF tramadol 50 mg tablet 25 mg PO DAILY Qty: 45 0RF anastrozole 1 mg tablet 1 mg PO DAILY Qty: 90 3RF pravastatin 40 mg tablet 40 mg PO DAILY@21 acetaminophen [Tylenol Extra Strength] 500 mg Tablet 1,000 mg PO PRN PRN (Reason: Pain) Hold Instructions: Resume on 06/17/22. lisinopril 5 mg tablet 7.5 mg PO BID@08,18 buspirone 10 mg tablet 10 mg PO BID PRN (Reason: Anxiety) Discharge Orders: Discharge ED (Routine); Ordered 01/08/23 Ordered By: Fabricio Vallejo Referrals: Fernando Albarado MD [Primary Care Provider] - 1-3 days Discharge Diet: Advance as tolerated Discharge Activity: Resume usual activity Patient Instructions: Constipation (ED) Coding Level of Care Code ED Computer Clerk for [place] Disla
[2023-01-08 09:15] LABS: Basophils % 0.3 %; Eosinophils # 0.1 10^3/uL (0.0-0.8); Hematocrit 41.6 % (37.0-47.0); Hemoglobin 13.7 g/dL (11.5-15.3); Lymphocytes # 1.5 10^3/uL (0.8-4.8); Lymphocytes % 21.5 %; Mean Corpuscular HGB Conc 32.9 g/dL (30.0-36.0); Mean Corpuscular Hemoglobin 28.3 pg (28.0-34.0); Monocytes # 0.5 10^3/uL (0.2-0.9); Monocytes % 7.9 %; Neutrophils # 4.64 10^3/uL (1.8-7.7); Neutrophils % 68.9 %; Nucleated Red Blood Cells % 0 %; Platelet Count 347 10^3/cmm (130-400); Red Blood Count 4.84 10^6/uL (4.1-5.3); Red Cell Distribution Width 12.7 % (12.1-15.1); White Blood Count 6.7 10^3/uL (4.0-10.0)
[2023-01-08 09:33] LABS: Alanine Aminotransferase < 5 U/L (0-33); Albumin Level 4.4 g/dL (3.5-5.2); Alkaline Phosphatase 69 U/L (35-105); Anion Gap 14.1 (5-19); Aspartate Amino Transferase 15 U/L (0-32); Blood Urea Nitrogen 8 mg/dL (8-23); Calcium 9.9 mg/dL (8.5-10.5); Carbon Dioxide 29 mmol/L (22-29); Chloride 100 mmol/L (98-107); Globulin 2.5 g/dL (1.3-4.6); Glucose 115 mg/dL (65-115); Lipase 45 U/L (13-60); Osmolality Calculated 287 mOsm/kg (285-295); Potassium 4.1 mmol/L (3.5-5.1); Sodium 139 mmol/L (136-145); Total Bilirubin 0.6 mg/dL (0.15-1.2); Total Protein 6.9 g/dL (6.6-8.7)
[2023-01-08] MEDS: ondansetron 2 mg/ML SDV 2 mL 4 MG IVP (09:38)
[2023-01-08] MEDS: iohexol 350 mg/mL 500 mL Btl (per mL) IV (09:53)
--- NOTE | 2023-01-08 10:14 | ECG_ITS ---
[facility] Test Date: 2023-01-08 Pat Name: Marilynn Sams Department: Room: Gender: Female Product Scientist: : 1940 Requested By: Fabricio Vallejo Order Number: [id number] Samaria MD: Tod Logan M.D. Measurements Intervals [place] Rate: 69 P: 70 LA: 183 QRS: -14 QRSD: 79 T: 85 QT: 410 QTc: 441 Interpretive Statements SINUS RHYTHM Compared to ECG 06/12/2022 09:42:58 T-wave abnormality no longer present Electronically Signed On 01-08-2023 15:17:17 CDT by Tod Logan M.D. [id number]
[2023-01-08 10:20] LABS: Add Urine Microscopic? YES; Bacteria Urine 1+ /hpf; Bilirubin Urine Neg (Negative); Blood Urine Neg (Negative); Glucose Urine UA Norm (Normal); Ketones Urine Negative (Negative); Leukocyte Esterase Urine Negative (Negative); Nitrate Urine Negative (Negative); Protein Urine Neg (Negative); RBC Urine RARE /hpf (0-2); Specific Gravity, Urine 1.015 (1.005-1.030); Squamous Epithelial Cell Urine 0-4 /hpf (0-5); Sulfosalicylic Acid Urine Negative (Negative); Urine Appearance Cloudy (CLEAR); Urine Color Yellow (Yellow); Urobilinogen Urine Norm (Negative); WBC Urine 0-4 /hpf (0-5); pH Urine 8 (5-7)
[2023-01-08 10:21] LABS: Amorphous Sediment Urine 3+ /hpf; Mucus Urine 1+ /hpf
== END 2023-01-08 11:12 | disposition home or self-care (01) ==
PROVIDERS: Emergency Provider Emergency Medicine; PCP Family Medicine
DX: K59.00 Constipation, unspecified (principal); Z85.3 Personal history of malignant neoplasm of breast; E78.5 Hyperlipidemia, unspecified; I10 Essential (primary) hypertension
CPT/HCPCS: 74177; 80053; 81001; 83690; 85025; 93005; 96374; 99285; J2405; Q9967

== ENCOUNTER 2023-02-24 09:08 | Emergency (ER) | payer MEDICARE, SELFPAY ==
[2023-02-24] VITALS (20 sets, daily range): BP systolic 175–210; BP diastolic 79–111; PULSE 70–80; RESP 18–29; TEMP 36.5; O2SAT 95–100; BMI 14.1
--- NOTE | 2023-02-24 09:16 | ECG_ITS ---
[facility] Test Date: 2023-02-24 Pat Name: Marilynn Sams Department: Room: Gender: Female Shuttle Threader: : 1940 Requested By: Kevin Amador Order Number: [id number] Samaria MD: Taylor Langley M.D. Measurements Intervals [place] Rate: 80 P: 77 CT: 175 QRS: -4 QRSD: 77 T: 78 QT: 351 QTc: 406 Interpretive Statements SINUS RHYTHM POSSIBLE LEFT ATRIAL ENLARGEMENT [-0.1mV P-WAVE IN V1/V2] Compared to ECG 01/08/2023 10:19:29 No significant changes Electronically Signed On 02-24-2023 12:56:04 CDT by Taylor Langley M.D. [id number]
--- NOTE | 2023-02-24 09:16 | XR_ITS ---
WS: [id number] EXAMINATION: XR chest 1V portable [id number] REASON FOR EXAM: dyspnea/cough COMPARISON: 06/24/2017 ORDER DATE: 02/24/2023 9:38 AM FINDINGS: There are scattered perihilar granulomatous calcifications. There are chronically increased perihilar /basilar bronchovascular and interstitial thickening with hyperinflation. The cardiac and mediastin al outlines are unremarkable. There are no pleural effusions. There are no discrete noncalcified pulm onary nodules. Chronic degenerative spine changes are present. IMPRESSION: DIFFUSE PULMONARY CHANGES OF COPD. NO ACUTE PULMONARY CHANGE.
[2023-02-24] MEDS: sodium chloride 0.9% 1,000 ML 999 ML IV (09:56)
[2023-02-24] MEDS: ondansetron 2 mg/ML SDV 2 mL 4 MG IVP (09:57)
[2023-02-24 10:01] LABS: Basophils % 0.3 %; Eosinophils % 0.3 %; Hematocrit 43.8 % (36-47); Lymphocytes # 1.2 10^3/uL (0.8-4.8); Lymphocytes % 16.3 %; Mean Corpuscular HGB Conc 32.2 g/dL (30-55); Mean Corpuscular Hemoglobin 28.1 pg (27-33); Mean Corpuscular Volume 87.3 fl (85-98); Mean Platelet Volume 9.4 fL (7.4-10.4); Monocytes # 0.6 10^3/uL (0.2-0.9); Monocytes % 7.4 %; Neutrophils # 5.75 10^3/uL (1.8-7.7); Neutrophils % 75.4 %; Nucleated Red Blood Cells % 0 %; Platelet Count 333 10^3/cmm (157-399); Red Blood Count 5.02 10^6/uL (3.85-5.65); Red Cell Distribution Width 13.2 % (12.1-15.1); White Blood Count 7.61 10^3/uL (3.29-11.43)
[2023-02-24 10:23] LABS: Alanine Aminotransferase < 5 U/L (0-33); Albumin Level 4.4 g/dL (3.5-5.2); Alkaline Phosphatase 66 U/L (35-105); Anion Gap 11.9 (5-19); Aspartate Amino Transferase 18 U/L (0-32); Blood Urea Nitrogen 7 mg/dL (8-23); Carbon Dioxide 31 mmol/L (22-29); Chloride 96 mmol/L (98-107); Globulin 3.3 g/dL (1.3-4.6); Glucose 142 mg/dL (65-115); Lipase 109 U/L (13-60); Osmolality Calculated 280 mOsm/kg (285-295); Potassium 3.9 mmol/L (3.5-5.1); Sodium 135 mmol/L (136-145); Total Bilirubin 0.5 mg/dL (0.15-1.2); Total Protein 7.7 g/dL (6.6-8.7)
--- NOTE | 2023-02-24 10:26 | W.ED.NAVMDI ---
HPI - Nausea/Vomiting/Diarrhea General: Chief complaint: Nausea/Vomiting/Diarrhea Stated complaint: n/v, can't eat Time Seen by Provider: 02/24/23 09:16 Source: patient and family Mode of arrival: ambulatory History of Present Illness: 82-year-old female presents to the emergency room complaining of persistent nausea vomiting. She has had it for over a year was worse this morning she took an ondansetron which did seem to help. She has a history of breast cancer had a lumpectomy and underwent chemotherapy at this point she has actually stopped her hormone suppressive therapy as well. MD elicited complaint: nausea and vomiting Associated nausea: Yes Associated symtoms: Reports nausea; Denies bloating, chest pain, dysuria, fatigue or malaise Review of Systems Const: Denies: fever(s), chills, body aches, change in appetite, fatigue or malaise ENMT: Denies: throat pain, ear or mastoid pain, nasal discharge or nasal congestion Card: Denies: chest pain, edema, dyspnea on exertion or orthopnea Resp: Denies: dyspnea, productive cough or non-productive cough GI: Reports: nausea and vomiting; Denies: abdominal pain, hematemesis, coffee ground emesis, diarrhea, constipation, bloating, hematochezia or melena : Denies: flank pain, difficulty voiding, dysuria, urinary frequency or urinary urgency Skin/Breast: Denies: rash or pruritus PFSH ED PFSH: Medical History Anxiety and depression 2020---is on BuSpar as needed for this Cystitis Diverticulosis GERD (gastroesophageal reflux disease) Glaucoma Had eye surgery 2018 to treat glaucoma History of cancer of right breast (10/2014) Hyperlipidemia Since her 60s and is currently on medication managed by her primary care provider. Hypertension Diagnosed in her 50s controlled with medication managed by her PMD and cardiology-Dr. Logan [place]ion[place] Surgical History History of breast surgery Lumpectomy left breast x2 S/P appendectomy (~1968) Midline upper abdominal incision--cholecystectomy done at the same time S/P breast biopsy, right X 2 -----> 1995 and 2001 S/P BSO (bilateral salpingo-oophorectomy) (06/19/15) Laparoscopic. Per[place]. Patricio at [facility] [place], [place]. S/P cholecystectomy (~1969) Performed in [place], [place]. S/P eye surgery (~2019) Cataracts and glaucoma. Performed by Dr. Jenkins at [facility]. S/P laparoscopic assisted vaginal hysterectomy (LAVH) (07/10/20) LAVH, laparoscopic USLS with enterocele repair, cystoscopy. Dx: Incomplete uterovaginal prolapse. Performed by Dr. Patricio at [facility] in [place], [place]. S/P lumpectomy, right breast (11/30/14) Right breast lumpectomy with axillary sentinel lymph node biopsy Family History Mother Heart disease Grandfather Diabetes Paternal Grandmother Breast cancer Maternal. MGM had a breast removed, unsure if it was breast cancer as she was a young child. Denies family history of Colon cancer Ovarian cancer Hyperlipidemia Hypertension Uterine cancer Thyroid condition Stroke Social History Smoking and tobacco status: never smoked Alcohol intake: never Substance/Drug Use: never Physical Exam Const: GENERAL APPEARANCE: cooperative ORIENTATION/CONSCIOUSNESS: Yes awake, Yes oriented to person, Yes oriented to place and Yes oriented to time HENMT: COMMON NORMALS: normocephalic, atraumatic and hearing grossly normal bilaterally HEAD & SCALP: normocephalic and atraumatic Resp: COMMON NORMALS: normal respiratory effort, No retractions, No use of accessory muscles and clear to auscultation bilaterally AUSCULTATION: clear to auscultation bilaterally Cardio: COMMON NORMALS: regular rate, regular rhythm and No murmurs present (Cardio) RATE: regular rate RHYTHM: regular rhythm GI: COMMON NORMALS: Soft to palpation and No hepatosplenomegaly present AUSCULTATION: Yes normoactive bowel sounds PALPATION: Yes Soft to palpation, No Tenderness to palpation present (GI), No Guarding due to palpation present (GI) and Yes No hepatosplenomegaly present Extremity: COMMON NORMALS: normal to inspection, capillary refill normal, no clubbing, cyanosis or edema, no calf tenderness and no pedal edema Neuro: SENSORIUM/ORIENTATION: Yes oriented to person, Yes oriented to place and Yes oriented to time Skin: COMMON NORMALS: no rashes or lesions noted GENERAL SKIN EXAM: no rashes or lesions noted Course Vital Signs: Vital signs: Vital Signs Temperature 97.7 F 02/24/23 09:37 Pulse Rate 80 02/24/23 12:39 Respiratory Rate 18 02/24/23 12:39 Blood Pressure 175/100 02/24/23 12:39 Pulse Oximetry 98 02/24/23 12:39 Oxygen Delivery Me thod Room Air 02/24/23 10:26 MDM - Nausea/Vomiting/Diarrhea Medical Decision Making Labs and imaging reviewed no acute changes. I suspect some of this is just to the cancer process. She seems to have prolonged nausea and vomiting after treatment. No acute process at this time continue follow-up with your primary care doctor continue to use previously prescribed medications give promethazine to use as an alternative clear liquid diet today and then advance as far as tolerated. Return if has further problems. Medical Records I reviewed the patient's medical records. Lab Data I reviewed the patient's lab results. 02/24/23 09:54 02/24/23 09:54 Laboratory Results WBC 7.61 10^3/uL (3.29-11.43) 02/24/23 09:54 RBC 5.02 10^6/uL (3.85-5.65) 02/24/23 09:54 Hgb 14.10 g/dL (11.27-16.99) 02/24/23 09:54 Hct 43.8 % (36-47) 02/24/23 09:54 MCV 87.3 fl (85-98) 02/24/23 09:54 MCH 28.1 pg (27-33) 02/24/23 09:54 MCHC 32.2 g/dL (30-55) 02/24/23 09:54 RDW 13.2 % (12.1-15.1) 02/24/23 09:54 Plt Count 333 10^3/cmm (157-399) 02/24/23 09:54 MPV 9.4 fL (7.4-10.4) 02/24/23 09:54 Neut % (Auto) 75.4 % 02/24/23 09:54 Lymph % (Auto) 16.3 % 02/24/23 09:54 [place] % (Auto) 7.4 % 02/24/23 09:54 Eos % (Auto) 0.3 % 02/24/23 09:54 Baso % (Auto) 0.3 % 02/24/23 09:54 Neut # (Auto) 5.75 10^3/uL (1.8-7.7) 02/24/23 09:54 Lymph # (Auto) 1.2 10^3/uL (0.8-4.8) 02/24/23 09:54 [place] # (Auto) 0.6 10^3/uL (0.2-0.9) 02/24/23 09:54 Eos # (Auto) 0.0 10^3/uL (0.0-0.8) 02/24/23 09:54 Baso # (Auto) 0.0 10^3/uL (0.0-0.1) 02/24/23 09:54 Nucleated RBC % (auto) 0 % 02/24/23 09:54 Nucleated RBCs # 0.0 /100WBC 02/24/23 09:54 Sodium 135 mmol/L (136-145) L 02/24/23 09:54 Potassium 3.9 mmol/L (3.5-5.1) 02/24/23 09:54 Chloride 96 mmol/L (98-107) L 02/24/23 09:54 Carbon Dioxide 31 mmol/L (22-29) H 02/24/23 09:54 Anion Gap 11.9 (5-19) 02/24/23 09:54 BUN 7 mg/dL (8-23) L 02/24/23 09:54 Creatinine 0.5 mg/dL (0.5-0.9) 02/24/23 09:54 GFR Calculation Not Reportable 02/24/23 09:54 Glucose 142 mg/dL (65-115) H 02/24/23 09:54 Calculated Osmolality 280 mOsm/kg (285-295) L 02/24/23 09:54 Calcium 10.0 mg/dL (8.5-10.5) 02/24/23 09:54 Total Bilirubin 0.5 mg/dL (0.15-1.2) 02/24/23 09:54 AST 18 U/L (0-32) 02/24/23 09:54 ALT < 5 U/L (0-33) 02/24/23 09:54 Alkaline Phosphatase 66 U/L (35-105) 02/24/23 09:54 Total Protein 7.7 g/dL (6.6-8.7) 02/24/23 09:54 Albumin 4.4 g/dL (3.5-5.2) 02/24/23 09:54 Globulin 3.3 g/dL (1.3-4.6) 02/24/23 09:54 Lipase 109 U/L (13-60) H 02/24/23 09:54 Urine Color Yellow (Yellow) 02/24/23 10:38 Urine Appearance Sl hazy (CLEAR) A 02/24/23 10:38 Urine pH 8 (5-7) H 02/24/23 10:38 Ur Specific [place] 1.010 (1.005-1.030) 02/24/23 10:38 Urine Protein Neg (Negative) 02/24/23 10:38 Urine Glucose (UA) Norm (Normal) 02/24/23 10:38 Urine Ketones Negative (Negative) 02/24/23 10:38 Urine Blood Neg (Negative) 02/24/23 10:38 Urine Nitrate Negative (Negative) 02/24/23 10:38 Urine Bilirubin Neg (Negative) 02/24/23 10:38 Prot Sulfosalicylic Acd Negative (Negative) 02/24/23 10:38 Urine Urobilinogen Norm mg/dL (Negative) 02/24/23 10:38 Ur Leukocyte Esterase Negative (Negative) 02/24/23 10:38 Urine RBC 0-4 /hpf (0-2) H 02/24/23 10:38 Urine WBC 0-4 /hpf (0-5) H 02/24/23 10:38 Ur Squamous Epith Cells 5-10 /hpf (0-5) H 02/24/23 10:38 Ur Transition Epith Cell 0-4 /hpf 02/24/23 10:38 Amorphous Sediment Not Reportable 02/24/23 10:38 Urine Bacteria Trace /hpf (NONE) 02/24/23 10:38 Urine Mucus Trace /hpf 02/24/23 10:38 All radiology interpretation(s) finalized by discharge Discharge Plan Discharge Patient Disposition: Home Clinical Impression: Nausea & vomiting Condition: Stable Prescriptions: New promethazine 25 mg tablet 25 mg PO Q6H PRN (Reason: nausea and vomiting) Qty: 20 0RF No Action DOK 100 mg capsule 100 mg PO BID PRN (Reason: Constipation) mometasone 0.1 % ointment 1 applic topical TID Qty: 45 1RF Rx Instructions: apply topically with finger TID lidocaine HCl 2 % jelly in applicator 1 applic topical TID Qty: 125 1RF Rx Instructions: apply topically with finger tid latanoprost 0.005 % drops 1 drp ophthalmic (eye) BEDTIME Rx Instructions: Left eye anastrozole 1 mg tablet 1 mg PO DAILY Qty: 90 3RF Hold Instructions: Doctor's Order Rx Instructions: (pts states med on hold 02/24/23) pravastatin 40 mg tablet 40 mg PO QPM acetaminophen [Tylenol Extra Strength] 500 mg Tablet 1,000 mg PO Q6H PRN (Reason: Pain) Hold Instructions: Resume on 06/17/22. lisinopril 5 mg tablet 10 mg PO BID polyethylene glycol 3350 [Miralax] 17 gram powder in packet 17 g PO DAILY PRN (Reason: constipation) Qty: 14 0RF buspirone 5 mg tablet 5 mg PO BID PRN (Reason: Anxiety) tramadol 50 mg tablet 50 mg PO BID ondansetron 4 mg tablet,disintegrating 4 mg PO DAILY PRN (Reason: Nausea And Vomiting) Premarin 0.625 mg/gram cream See Rx Instructions .ROUTE .COMPLEX Rx Instructions: APPLY 0.5 GRAM TWICE WEEKLY DIRECTED Discharge Orders: Discharge ED (Routine); Ordered 02/24/23 Ordered By: Kevin Anders Referrals: Fernando Albarado MD [Primary Care Provider] - Discharge Diet: Usual diet Discharge Activity: Increase activity as tolerated Patient Instructions: Opioid Safety, Pain Management Activity Restrictions/Additional Instructions: You are seen today for nausea and vomiting. CT of the abdomen not show anything acute due to some mild constipation laboratory test showed a mild elevation in your lipase but there is no evidence of acute pancreatitis on the CT follow-up with your oncology doctor or your primary care doctor. We did give you prescription for promethazine to trial instead of ondansetron to see if that works better for you. Coding Level of Care Code ED Lumber Carrier Operator for [place] [facility]
--- NOTE | 2023-02-24 10:38 | PC.PHAR ---
PTS VERIFIED PTS MEDICATIONS-PTS STATES THE PT WAS HAVING SIDE EFFECTS FROM ANASTROZOLE 1MG DAILY STATES PT NOT TAKEN FOR 7 DAYS STATES THE MED IS ON HOLD-PTS STATES THE PT HAS BEEN TAKING LISINOPRIL 5MG 2 TABS (10MG ) BID RX FILLED FOR 5MG TAKE 1&1/2 TABS (7.5MG) BID ON 02/06/23 90D/S-PTS STATES THE PILLS ARE TOO HARD TO CUT-PTS STATES HE IS UNSURE IF THE PT IS USING PREMARIN 0.625MG/GRAM CREAM PAPER PTS STATES THE PT STARTED 02/10/23-NOTES ARE MADE IN THE PHARMACY COMMENTS
[2023-02-24] MEDS: lisinopril 10 mg Tablet PO (10:50)
[2023-02-24] MEDS: amlodipine 5 mg Tablet PO (10:50)
[2023-02-24 11:05] LABS: Add Urine Microscopic? YES; Bilirubin Urine Neg (Negative); Blood Urine Neg (Negative); Glucose Urine UA Norm (Normal); Ketones Urine Negative (Negative); Leukocyte Esterase Urine Negative (Negative); Nitrate Urine Negative (Negative); Protein Urine Neg (Negative); Urine Appearance SL Hazy (CLEAR); Urine Color Yellow (Yellow); Urobilinogen Urine Norm (Negative); pH Urine 8 (5-7)
[2023-02-24 11:08] LABS: Bacteria Urine TRACE /hpf; Mucus Urine TRACE /hpf; RBC Urine 0-4 /hpf (0-2); Transitional Epi Cells Urine 0-4 /hpf; WBC Urine 0-4 /hpf (0-5)
[2023-02-24 11:09] LABS: Sulfosalicylic Acid Urine Negative (Negative)
--- NOTE | 2023-02-24 11:34 | CT_ITS ---
WS: [id number] CT ABDOMEN PELVIS TECHNIQUE: Contrast-enhanced CT of the abdomen and pelvis with coronal and sagittal reformatted image s. CLINICAL INFORMATION: abd pain COMPARISON: CT 01/08/2023 DLP: 273.[address] scans at [facility] use at least one of these dose optimization techniques: automated e xposure control; mA and/or kV adjustment per patient size (includes targeted exams where dose is matc hed to clinical indication); or iterative reconstruction. FINDINGS: Prior hysterectomy. Cholecystectomy. Mild diffuse fatty filtration of the liver. Physiologic bile maikel t dilatation postcholecystectomy. Normal portal vein and splenic vein. Stable peripheral splenic calc ifications. Lung bases are well aerated. Adrenal glands are normal. Normal renal parenchymal enhancem ent. No hydronephrosis. A few tiny renal cysts. Fatty atrophy of the pancreas. Splenic artery calcifi cation. Aortic calcification. Normal caliber abdominal aorta. Gastric rugal thickening suspicious for gastritis Fecal retention in the sigmoid colon. Mild sigmoid constipation. Sigmoid diverticulosis. No evidence of acute diverticulitis. No evidence of high-grade obstruction. Air-fluid level in the stomach. IMPRESSION: 1. Prior hysterectomy and cholecystectomy. 2. Gastric rugal thickening suspicious for gastritis. Air-fluid level in the stomach. 3. Sigmoid diverticulosis. No evidence of acute diverticulitis. 4. Rectosigmoid constipation. Mild to moderate constipation throughout the colon similar to previous . Recommend follow-up with colonoscopy 5. No other acute findings.
[2023-02-24] MEDS: iohexol 350 mg/mL 500 mL Btl (per mL) IV (11:51)
== END 2023-02-24 12:34 | disposition home or self-care (01) ==
PROVIDERS: Emergency Provider Family Medicine; PCP Family Medicine
DX: R11.2 Nausea with vomiting, unspecified (principal); E78.5 Hyperlipidemia, unspecified; I10 Essential (primary) hypertension; Z85.3 Personal history of malignant neoplasm of breast
CPT/HCPCS: 71045; 74177; 80053; 81001; 83690; 85025; 93005; 96361; 96374; 99285; J2405; J7030; Q9967

== ENCOUNTER 2023-03-09 10:55 | Oncology outpatient (recurring) (ONCR) | payer MEDICARE, SELFPAY ==
[2023-03-09 11:03] VITALS: BP 184/84; PULSE 80; RESP 16; TEMP 36.6; O2SAT 98
[2023-03-09 11:20] LABS: Basophils % 0.3 %; Eosinophils % 0.3 %; Hematocrit 41.7 % (36-47); Lymphocytes # 1.9 10^3/uL (0.8-4.8); Lymphocytes % 16.7 %; Mean Corpuscular HGB Conc 31.9 g/dL (30-55); Mean Corpuscular Hemoglobin 28.1 pg (27-33); Mean Platelet Volume 9.4 fL (7.4-10.4); Monocytes # 0.8 10^3/uL (0.2-0.9); Monocytes % 7.2 %; Neutrophils # 8.66 10^3/uL (1.8-7.7); Neutrophils % 75.2 %; Nucleated Red Blood Cells % 0 %; Platelet Count 405 10^3/cmm (157-399); Red Blood Count 4.74 10^6/uL (3.85-5.65); Red Cell Distribution Width 13.4 % (12.1-15.1); White Blood Count 11.52 10^3/uL (3.29-11.43)
[2023-03-09 11:42] LABS: Alanine Aminotransferase < 5 U/L (0-33); Albumin Level 4.3 g/dL (3.5-5.2); Alkaline Phosphatase 83 U/L (35-105); Anion Gap 13.5 (5-19); Aspartate Amino Transferase 16 U/L (0-32); Blood Urea Nitrogen 11 mg/dL (8-23); Calcium 9.3 mg/dL (8.5-10.5); Carbon Dioxide 30 mmol/L (22-29); Chloride 97 mmol/L (98-107); Globulin 2.9 g/dL (1.3-4.6); Glucose 128 mg/dL (65-115); Osmolality Calculated 283 mOsm/kg (285-295); Potassium 4.5 mmol/L (3.5-5.1); Sodium 136 mmol/L (136-145); Total Bilirubin 0.4 mg/dL (0.15-1.2); Total Protein 7.2 g/dL (6.6-8.7)
== END 2023-03-24 23:59 | disposition home or self-care (01) ==
LOC: ONCMED 10:56
PROVIDERS: Nurse Practitioner Family; PCP Family Medicine; Visit Provider Internal Medicine Medical Oncology
DX: Z17.0 Estrogen receptor positive status [ER+]; C50.512 Malignant neoplasm of lower-outer quadrant of left female breast; R11.0 Nausea; R63.0 Anorexia; R63.4 Abnormal weight loss; R53.0 Neoplastic (malignant) related fatigue
CPT/HCPCS: 36415; 80053; 85025; 99214

== ENCOUNTER 2023-04-01 15:22 | Oncology outpatient (recurring) (ONCR) | payer MEDICARE, SELFPAY | END 2023-04-23 23:59 | disposition home or self-care (01) | PROVIDERS: PCP Family Medicine; Visit Provider Internal Medicine Medical Oncology | DX: C50.512 Malignant neoplasm of lower-outer quadrant of left female breast (principal); Z17.0 Estrogen receptor positive status [ER+]; R11.0 Nausea; R63.0 Anorexia; R63.4 Abnormal weight loss; R53.0 Neoplastic (malignant) related fatigue | CPT/HCPCS: 99215 ==